=== PATIENT | male | born 1970 | race Caucasian/White ===

== ENCOUNTER → 2018-07-31 09:21 | Outpatient (CLI) | payer OTHER, SELFPAY ==
--- NOTE | 2018-07-31 09:27 | US_ITS ---
US abdomen limited History:Bloating after meals Ordering Physician:Claire Urbina Patient Age: 48 years Comparison:None Findings: Pancreas:Unremarkable. No obvious mass or abnormal fluid collection. No ductal dilatation Liver:There is increased echogenicity of the liver with decreased through transmission of sound consistent with hepatic steatosis. No focal liver lesions are demonstrated. Right Kidney:Unremarkable. Normal size and echogenicity. No hydronephrosis Gallbladder:No gallstones, gallbladder wall thickening, pericholecystic fluid, or biliary dilatation. Echogenic sludge is noted within the gallbladder. Impression: 1. No gallstones gallbladder wall thickening pericholecystic fluid or biliary dilatation. 2. Gallbladder sludge. 3. Hepatic steatosis
== END ==
PROVIDERS: Visit Provider Nurse Practitioner Acute Care
DX: R14.0 Abdominal distension (gaseous) (principal)
CPT/HCPCS: 76705

== ENCOUNTER 2018-09-22 17:10 | Observation (INO) ==
--- NOTE | 2018-09-22 17:20 | Emergency Department Note ---
ED Disposition Clinical Impression: Acute gastroenteritis Disposition: Still a Patient Condition on Discharge: Fair - Critical Care Critical Care Time: No Attestation: On , the high probability of a clinically significant, sudden or life threatening deterioration of the following system(s) required my full and direct attention, intervention and personal management. The time I documented below is in addition to time spent performing reported procedures but includes the following listed in this critical care notation. Medical Decision Making - [place] Inquiry Pt receiving controlled substance: No Vital Signs: 09/22/18 17:14 09/22/18 18:53 09/22/18 19:27 Temperature 97.7 F 97.7 F Temperature Source Oral Oral Pulse Rate 60 Pulse Rate [Left Radial] 63 68 Respiratory Rate 16 16 Blood Pressure 161/98 H Blood Pressure [Right Arm] 159/102 H 147/93 H Blood Pressure Mean [Right Arm] 121 111 Blood Pressure Source Automatic Cuff Blood Pressure Source [Right Arm] Automatic Cuff Automatic Cuff Blood Pressure Position Sitting Blood Pressure Position [Right Arm] Sitting Sitting 02 Sat by Pulse Oximetry 98 Oxygen Delivery Method Room Air Room Air - Lab Data Lab Results 09/22/18 17:14: WBC 10.8, RBC 4.74, Hgb 13.8 L, Hct 43.4, MCV 91.6, MCH 29.0, MCHC 31.7 L, RDW 14.1, Plt Count 129 L, MPV 10.5 H, Neut % (Auto) 83.9 H, Lymph % (Auto) 12.0, [place] % (Auto) 3.1, Eos % (Auto) 0.8, Baso % (Auto) 0.2, Neut # (Auto) 9.1 H, Lymph # (Auto) 1.3, [place] # (Auto) 0.3, Eos # (Auto) 0.1, Baso # (Auto) 0.0 09/22/18 17:14: Sodium 137, Potassium 3.5, Chloride 100, Carbon Dioxide 31, Anion Gap 9.5, BUN 17, Creatinine 1.21, Estimated Creat Clear 103, Estimated GFR 64, Est GFR ( Amer) 77, Glucose 140 H, Calcium 9.2, Total Bilirubin 0.4, AST 45 H, ALT 71, Alkaline Phosphatase 120 H, Total Protein 8.3 H, Albumin 4.4, Globulin 3.9 H, Albumin/Globulin Ratio 1.1 Result diagrams: 09/22/18 17:14 09/22/18 17:14 Orders (Tests/Meds): ED MEDICATIONS Generic Name Dose Route Start Last Admin Trade Name Frebobby PRN Reason Stop Dose Admin Acetaminophen 650 mg 09/22/18 19:41 Acetaminophen 325mg Tab PO 10/22/18 19:40 Q4HP PRN As Needed for Fever or Pain Fluoxetine HCl 10 mg 09/23/18 09:00 Prozac 10mg Capsule PO 10/23/18 08:59 DAILY ALFREDO Sodium Chloride 1,000 mls @ 150 mls/hr 09/22/18 19:41 Sod Chlor 0.9% 1000ml Bag IV 10/22/18 19:40 .Q6H40M ALFREDO Sodium Chloride 1,000 mls @ 999 mls/hr 09/22/18 19:41 09/22/18 19:53 Sod Chlor 0.9% 1000ml Bag IV 09/22/18 20:30 999 mls/hr .Q1H1M ALFREDO Administration Non-Formulary Medication 50 mg 09/23/18 09:00 Losartan Potassium [Losartan Potassium] PO 10/23/18 08:59 DAILY ALFREDO Non-Formulary Medication 60 mg 09/23/18 09:00 Propranolol Hcl [Propranolol Hcl Er] PO 10/23/18 08:59 DAILY ALFREOD Non-Formulary Medication 40 mg 09/23/18 09:00 Rosuvastatin Calcium [Rosuvastatin Calcium] PO 10/23/18 08:59 DAILY ALFREDO Ondansetron HCl 4 mg 09/22/18 19:41 Zofran 4mg/2ml Vial IV 10/22/18 19:40 Q8HP PRN Nausea Sodium Chloride 10 ml 09/22/18 19:41 Saline Flush 10ml Syringe IV 10/22/18 19:40 NEEDED PRN Maintain IV Site Discontinued Medications Generic Name Dose Route Start Last Admin Trade Name Freq PRN Reason Stop Dose Admin Sodium Chloride 1,000 mls @ 999 mls/hr 09/22/18 17:30 09/22/18 17:25 Sod Chlor 0.9% 1000ml Bag IV 09/22/18 18:30 999 mls/hr .Q1H1M ALFREDO Administration Sodium Chloride 1,000 mls @ 999 mls/hr 09/22/18 19:30 09/22/18 19:00 Sod Chlor 0.9% 1000ml Bag IV 09/22/18 20:30 999 mls/hr .Q1H1M ALFREDO Administration Ondansetron HCl 4 mg 09/22/18 17:22 09/22/18 17:24 Zofran 4mg/2ml Vial IV 09/22/18 17:23 4 mg ONCE ONE Administration ORDERS Category Date Time Status Basic Metabolic Panel AMLAB Lab 09/23/18 06:00 Ordered Diarrhea Panel, PCR Stat Lab 09/22/18 17:22 Ordered - Physician Consults Physician Consulted: Morenita Time: 18:55 Reason -: Admission Comment/Response: Agrees to admit the patient to the hospital. We discussed the patient's clinical information, including history, exam, laboratory and radiology results and ED course. Per hospital procedure, I will write temporary bridge inpatient orders on the patient. Specific orders requested by the admitting physician: IV fluids, antiemetics, diarrhea panel - Reevaluation(s) Time: 18:50 Reevaluation #1: No further vomiting since my exam, no diarrhea in the ED as of yet, but still feels weak and appears pale. General Adult HPI - General Chief complaint: Nausea/Vomiting/Diarrhea Stated complaint: N/V/D Time Seen by Provider: 09/22/18 17:20 Mode of Arrival: Wheelchair Limitations: No Limitations Description of Symptoms (Recalled from ER Triage Doc. by RN): to ed per pvt car with c/o nausea, vomiting, diarrhea, abd cramping starting approx 130 today. pt pale, petechiae noted around eyes. denies any sick contacts at home cpta none - History of Present Illness HPI narrative: He has been sick since Tuesday 2 days ago. He has had fevers and had diarrhea on Tuesday. Yesterday seemed to improve some. Today at about 130 began having profuse amounts of vomiting and diarrhea. Has abdominal cramping when he has diarrhea, otherwise no abdominal pain. No known exposures. No recent travel or antibiotics. - Related Data Home Medications Medication Instructions Recorded Confirmed Fluoxetine HCl [Prozac 10mg 10 mg PO DAILY 09/22/18 09/22/18 Capsule] Losartan Potassium 50 mg PO DAILY 09/22/18 09/22/18 Propranolol HCl [Propranolol HCl 60 mg PO DAILY 09/22/18 09/22/18 ER] Rosuvastatin Calcium 40 mg PO DAILY 09/22/18 09/22/18 hydroCHLOROthiazide [HCTZ 25mg 25 mg PO DAILY 09/22/18 09/22/18 tab] Allergies Allergy/AdvReac Type Severity Reaction Status Date / Time No Known Allergies Allergy Verified 09/22/18 17:21 [facility] History - Hepatitis A Screen Drug use history?: No High risk sexual behaviors?: No History of sexually transmitted infection?: No Currently employed?: No Childcare worker?: No Do you have indoor plumbing?: Yes Do you have electricity?: Yes Attestation statement:: This patient has been screened for Hepatitis A risk factors. I have reviewed the patient's past medical history: Yes - Social History Alcohol Intake: current Alcohol Intake Frequency:: holidays/special occasions only - Psychiatric History Expresses thoughts of harming self/others: None Suicide Plan Description: No Plan ROS Obtained: Yes All systems reviewed & no additional complaints - Constitutional Constitutional: Reports body ache, Reports fever(s) - Gastrointestinal Gastrointestingal: Reports: cramping, diarrhea, vomiting Physical Exam - General General appearance: alert Comment: Pale, vomits during my exam - Head Head exam: atraumatic, normocephalic - Eye Eye exam: Present: PERRL, EOMI - ENT ENT exam: Present: other (Periorbital facial petechiae from vomiting) - Neck Neck exam: Present: normal inspection, trachea midline - Chest Chest inspection: Present: normal inspection, symmetric chest wall rise - Respiratory Respiratory exam: Present: normal lung sounds bilaterally. Absent: respiratory distress - Cardiovascular Cardiovascular exam: Present: regular rate, normal rhythm, normal heart sounds - Abdominal Exam Abdominal exam: Present: soft. Absent: distention, tenderness, guarding, rebound, rigidity - Extremities Exam Extremities exam: Present: normal inspection - Neurological Exam Neurological exam: Present: alert, oriented X3 - Psychiatric Psychiatric exam: Present: normal affect, normal mood - Skin Skin exam: Present: warm, dry, pallor
[2018-09-22 17:31] LABS: Basophils % 0.2 % (0.1-2.0); Eosinophils # 0.1 K/mm3 (0.0-0.4); Eosinophils % 0.8 % (0.1-12.0); Hematocrit 43.4 % (42.0-52.0); Hemoglobin 13.8 g/dL (14.1-18.0); Lymphocytes # 1.3 K/mm3 (0.7-4.5); Mean Corpuscular HGB Conc 31.7 g/dL (31.8-35.4); Mean Corpuscular Volume 91.6 fl (80-94); Mean Platelet Volume 10.5 fl (7.4-10.4); Monocytes # 0.3 K/mm3 (0.1-1.0); Monocytes % 3.1 % (1.7-9.3); Neutrophils # 9.1 K/mm3 (1.8-7.8); Neutrophils % 83.9 % (37.0-80.0); Platelet Count 129 K/mm3 (142-424); Red Blood Count 4.74 M/mm3 (4.60-6.20); Red Cell Distribution Width 14.1 % (11.5-17.5); White Blood Count 10.8 K/mm3 (4.8-10.8)
[2018-09-22 17:38] LABS: Albumin Level 4.4 gm/dL (3.4-5.0); Albumin/Globulin Ratio 1.1 (1.1-1.8); Anion Gap 9.5 mEq/L (5-15); Bilirubin,Total 0.4 mg/dL (0.2-1.0); Calcium 9.2 mg/dL (8.5-10.1); Globulin 3.9 gm/dl (1.3-3.2); Potassium 3.5 mmoL/L (3.5-5.1); Total Protein,Serum 8.3 gm/dL (6.4-8.2)
--- NOTE | 2018-09-22 21:13 | Progress Note ---
Internal Medicine - PN: Subj *Date: 09/22/18 *Time: 21:10 Interval history: Came to see patient admitted with gastroenteritis this evening. He has been sick off and on for the past 3 days but got much worse this afternoon. He feels better after receiving treatment in the ER. Exam Vital signs and Labs for Last 24 Hours: Temp Pulse Resp BP Pulse Ox 97.7 F 60 16 161/98 H 98 09/22/18 19:27 09/22/18 19:27 09/22/18 19:27 09/22/18 19:27 09/22/18 17:14 Laboratory Results - last 24 hr 09/22/18 17:14: WBC 10.8, RBC 4.74, Hgb 13.8 L, Hct 43.4, MCV 91.6, MCH 29.0, M CHC 31.7 L, RDW 14.1, Plt Count 129 L, MPV 10.5 H, Neut % (Auto) 83.9 H, Lymph % (Auto) 12.0, [place] % (Auto) 3.1, Eos % (Auto) 0.8, Baso % (Auto) 0.2, Neut # (Auto) 9.1 H, Lymph # (Auto) 1.3, [place] # (Auto) 0.3, Eos # (Auto) 0.1, Baso # (Auto) 0.0 09/22/18 17:14: Sodium 137, Potassium 3.5, Chloride 100, Carbon Dioxide 31, Anion Gap 9.5, BUN 17, Creatinine 1.21, Estimated Creat Clear 103, Estimated GFR 64, Est GFR ( Amer) 77, Glucose 140 H, Calcium 9.2, Total Bilirubin 0.4, AST 45 H, ALT 71, Alkaline Phosphatase 120 H, Total Protein 8.3 H, Albumin 4.4, Globulin 3.9 H, Albumin/Globulin Ratio 1.1 I & O for Last 24 hours: Intake & Output 09/20/18 09/21/18 09/22/18 09/23/18 11:59 11:59 11:59 11:59 Weight 215 lb - Constitutional no acute distress (sleeping, awakens to voice, conversant) Assessment and Plan (1) Acute gastroenteritis Current visit: Yes Status: Acute Category: Medical Code(s): K52.9 - Noninfective gastroenteritis and colitis, unspecified - Assessment and plan all Dx Assessment and Plan for all problems:: Continue bowel rest & IVF, will start Rocephin tonight.
[2018-09-23 07:17] LABS: Basophils % 0.2 % (0.1-2.0); Eosinophils # 0.1 K/mm3 (0.0-0.4); Eosinophils % 0.7 % (0.1-12.0); Hematocrit 39.5 % (42.0-52.0); Hemoglobin 12.7 g/dL (14.1-18.0); Lymphocytes # 1.8 K/mm3 (0.7-4.5); Lymphocytes % 22.6 % (10-50); Mean Corpuscular HGB Conc 32.1 g/dL (31.8-35.4); Mean Corpuscular Hemoglobin 28.9 pg (27.0-31.2); Mean Platelet Volume 10.3 fl (7.4-10.4); Monocytes # 0.5 K/mm3 (0.1-1.0); Monocytes % 6.5 % (1.7-9.3); Neutrophils # 5.5 K/mm3 (1.8-7.8); Platelet Count 124 K/mm3 (142-424); Red Blood Count 4.39 M/mm3 (4.60-6.20); Red Cell Distribution Width 14.1 % (11.5-17.5); White Blood Count 7.9 K/mm3 (4.8-10.8)
[2018-09-23 07:21] LABS: Anion Gap 11.4 mEq/L (5-15); Potassium 3.4 mmoL/L (3.5-5.1)
[2018-09-23 07:52] LABS: Calcium 8.1 mg/dL (8.5-10.1)
--- NOTE | 2018-09-23 08:35 | History & Physical Report ---
*Admission Date: 09/22/18 <Oralia Sierra 09/23/18 08:40> *Chief complaint: vomiting, nausea <Oralia Sierra 09/23/18 08:40> *History of present illness: Mr. Cadena is a 48yo male with a hx of hypertension, hyperlipidemia, and depression. He states he had nausea and vomiting Tuesday and of this week and thought he just had what his son had had the week prior. He felt better yesterday and came to work. He states he ate some chicken chili for lunch and at 1:30 PM started having vomiting and diarrhea. He became very dizzy and developed a headache. He was unable to drive home and therefore presented to the emergency room for further evaluation and treatment. He was given IV fluids and antiemetics and by 4 PM, he states the vomiting and diarrhea decreased. He has vomited 3 times since he has been hospital. He had a few sips of water and a tiny bit of chicken broth. He still has decreased UOP. He states his stomach is sore but he denies any abdominal pain. <Oralia Sierra 09/23/18 08:40> [facility] History Medical History: Reports:: Depression, Hyperlipidemia, Hypertension <Oralia Sierra 09/23/18 08:40> Laterality Cases: Bilateral: Tonsillectomy <Oralia Sierra 09/23/18 08:40> - *Social History Educational Level: Completed College <Oralia iSerra 09/23/18 08:40> Smoking Status: Never smoker <Oralia Sierra 09/23/18 08:40> Alcohol Intake: current <Oralia Sierra 09/23/18 08:40> Alcohol Intake Frequency:: holidays/special occasions only <Oralia Sierra 09/23/18 08:40> Occupational Status: employed <Oralia Sierra 09/23/18 08:40> - Psychiatric History Expresses thoughts of harming self/others: None <Oralia Sierra 09/23/18 08:40> Suicide Plan Description: No Plan <Oralia Sierra 09/23/18 08:40> *Family Hx:: Diabetes <Oralia Sierra 09/23/18 08:40> Review of Systems - Constitutional Reports body ache(s), Reports chills, Reports fever(s), Reports headache(s), Reports weakness <Anjel Sierraa 09/23/18 08:40> - Eyes Denies blurry vision, Denies double vision [facility] 09/[facility] 08:40> - ENT Reports nasal congestion, Denies sore throat [facility] 09/23/18 08:40> - *Cardiovascular Reports lightheadedness, Denies chest pain [facility] 09/[facility]/18 08:40> - *Respiratory Denies cough, Denies shortness of breath [facility] 09/23/18 08:40> - *Gastrointestinal Reports abdominal pain, Reports loose stools, Reports nausea, Reports vomiting [facility] 09/23/18 08:40> - *Genitourinary Denies difficulty urinating, Denies painful urination <[facility] 09/23/18 08:40> - *Musculoskeletal Reports body aches [facility] 09/[facility]/18 08:40> - *Neurologic Reports dizziness, Reports headache(s), Reports weakness [facility] 09/23/18 08:40> Meds Home Medications Medication Instructions Recorded Confirmed Type Fluoxetine HCl [Prozac 10mg 10 mg PO 09/22/18 09/23/18 History Capsule] Losartan Potassium 50 mg PO DAILY 09/22/18 09/23/18 History Propranolol HCl [Propranolol HCl 60 mg PO 09/22/18 09/23/18 History ER] Rosuvastatin Calcium 40 mg PO HS 09/22/18 09/23/18 History hydroCHLOROthiazide [HCTZ 25mg 25 mg PO DAILY 09/22/18 09/23/18 History tab] <Murray Xavier 09/23/18 08:48> Allergies Allergy/AdvReac Type Severity Reaction Status Date / Time No Known Allergies Allergy Verified 09/22/18 17:21 <Murray Xavier - 09/23/18 08:48> Exam Vital signs and Labs for Last 24 Hours: Temp Pulse Resp BP Pulse Ox 98.2 F 84 18 153/78 H 95 09/23/18 08:00 09/23/18 08:00 09/23/18 08:00 09/23/18 08:00 09/23/18 08:00 Laboratory Results - last 24 hr 09/22/18 17:14: WBC 10.8, RBC 4.74, Hgb 13.8 L, Hct 43.4, MCV 91.6, MCH 29.0, MCHC 31.7 L, RDW 14.1, Plt Count 129 L, MPV 10.5 H, Neut % (Auto) 83.9 H, Lymph % (Auto) 12.0, [place] % (Auto) 3.1, Eos % (Auto) 0.8, Baso % (Auto) 0.2, Neut # (Auto) 9.1 H, Lymph # (Auto) 1.3, [place] # (Auto) 0.3, Eos # (Auto) 0.1, Baso # (Auto) 0.0 09/22/18 17:14: Sodium 137, Potassium 3.5, Chloride 100, Carbon Dioxide 31, Anion Gap 9.5, BUN 17, Creatinine 1.21, Estimated Creat Clear 103, Estimated GFR 64, Est GFR ( Amer) 77, Glucose 140 H, Calcium 9.2, Total Bilirubin 0.4, AST 45 H, ALT 71, Alkaline Phosphatase 120 H, Total Protein 8.3 H, Albumin 4.4, Globulin 3.9 H, Albumin/Globulin Ratio 1.1 09/23/18 06:44: Sodium 139, Potassium 3.4 L, Chloride 105, Carbon Dioxide 26, Anion Gap 11.4, BUN 12 D, Creatinine 1.01, Estimated Creat Clear 124, Estimated GFR 79, Est GFR ( Amer) 95 D, Glucose 124 H, Calcium 8.1 L D 09/23/18 06:44: WBC 7.9 D, RBC 4.39 L, Hgb 12.7 L, Hct 39.5 L, MCV 90.0, MCH 28.9, MCHC 32.1, RDW 14.1, Plt Count 124 L, MPV 10.3, Neut % (Auto) 70.0, Lymph % (Auto) 22.6, [place] % (Auto) 6.5, Eos % (Auto) 0.7, Baso % (Auto) 0.2, Neut # (Auto) 5.5, Lymph # (Auto) 1.8, [place] # (Auto) 0.5, Eos # (Auto) 0.1, Baso # (Auto) 0.0 <Murray Xavier - 09/23/18 08:48> Temp Pulse Resp BP Pulse Ox 98.2 F 84 18 153/78 H 95 09/23/18 08:00 09/23/18 08:00 09/23/18 08:00 09/23/18 08:00 09/23/18 08:00 Laboratory Results - last 24 hr 09/22/18 17:14: WBC 10.8, RBC 4.74, Hgb 13.8 L, Hct 43.4, MCV 91.6, MCH 29.0, MCHC 31.7 L, RDW 14.1, Plt Count 129 L, MPV 10.5 H, Neut % (Auto) 83.9 H, Lymph % (Auto) 12.0, [place] % (Auto) 3.1, Eos % (Auto) 0.8, Baso % (Auto) 0.2, Neut # (Auto) 9.1 H, Lymph # (Auto) 1.3, [place] # (Auto) 0.3, Eos # (Auto) 0.1, Baso # (Auto) 0.0 09/22/18 17:14: Sodium 137, Potassium 3.5, Chloride 100, Carbon Dioxide 31, Anion Gap 9.5, BUN 17, Creatinine 1.21, Estimated Creat Clear 103, Estimated GFR 64, Est GFR ( Amer) 77, Glucose 140 H, Calcium 9.2, Total Bilirubin 0.4, AST 45 H, ALT 71, Alkaline Phosphatase 120 H, Total Protein 8.3 H, Albumin 4.4, Globulin 3.9 H, Albumin/Globulin Ratio 1.1 09/23/18 06:44: Sodium 139, Potassium 3.4 L, Chloride 105, Carbon Dioxide 26, Anion Gap 11.4, BUN 12 D, Creatinine 1.01, Estimated Creat Clear 124, Estimated GFR 79, Est GFR ( Amer) 95 D, Glucose 124 H, Calcium 8.1 L D 09/23/18 06:44: WBC 7.9 D, RBC 4.39 L, Hgb 12.7 L, Hct 39.5 L, MCV 90.0, MCH 28.9, MCHC 32.1, RDW 14.1, Plt Count 124 L, MPV 10.3, Neut % (Auto) 70.0, Lymph % (Auto) 22.6, [place] % (Auto) 6.5, Eos % (Auto) 0.7, Baso % (Auto) 0.2, Neut # (Auto) 5.5, Lymph # (Auto) 1.8, [place] # (Auto) 0.5, Eos # (Auto) 0.1, Baso # (Auto) 0.0 <Oralia Sierra 09/23/18 08:40> I & O for Last 24 hours: Intake & Output 09/20/18 09/21/18 09/22/18 09/23/18 11:59 11:59 11:59 11:59 Intake Total 2380 / 2380 Output Total 500 / 500 Balance 1880 / 1880 Weight 216 lb 3 oz <Murray Xavier - 09/23/18 08:48> Intake & Output 09/20/18 09/21/18 09/22/18 09/23/18 11:59 11:59 11:59 11:59 Intake Total 2380 / 2380 Output Total 500 / 500 Balance 1880 / 1880 Weight 216 lb 3 oz <Oralia Sierra 09/23/18 08:40> - Constitutional Comments: Does not appear to feel well <Oralai Sierra 09/23/18 08:40> - *Routine HEENT Exam Head: Present: normocephalic <Oralia Sierra 09/23/18 08:40> Eye: Present: EOMI, PERRL <Oralia Sierra 09/23/18 08:40> ENT: Present: mucous membranes dry <Oralia Sierra 09/23/18 08:40> - *Routine Neck Exam Present: supple. Absent: lymphadenopathy <Oralia Sierra 09/23/18 08:40> - *Routine Respiratory Exam Present: CTA bilaterally <Oralia Sierra 09/23/18 08:40> - *Routine Cardiovascular Exam Present: RRR <Oralia Sierra 09/23/18 08:40> - *Routine Abdominal Exam Present: soft, normoactive bowel sounds. Absent: tenderness <Oralia Sierra 09/23/18 08:40> - *Routine Extremities Exam Absent: cyanosis, clubbing, edema <Oralia Sierra 09/23/18 08:40> - *Routine Skin Exam Present: petechiae (periorbital), warm <Oralia Sierra 09/23/18 08:40> - *Routine Neurological Exam Present: alert, oriented X3 <Oralia Sierra 09/23/18 08:40> Assessment and Plan (1) Acute gastroenteritis Current visit: Yes Status: Acute Category: Medical Code(s): K52.9 - Noninfective gastroenteritis and colitis, unspecified (2) Hypertension Current visit: Yes Status: Chronic Category: Medical Code(s): I10 - Essential (primary) hypertension (3) Hyperlipidemia Current visit: Yes Status: Chronic Category: Medical Code(s): E78.5 - Hyperlipidemia, unspecified <Murray Xavier 09/23/18 08:48> (1) Acute gastroenteritis Current visit: Yes Status: Acute Category: Medical Code(s): K52.9 - Noninfective gastroenteritis and colitis, unspecified (2) Hypertension Current visit: Yes Status: Chronic Category: Medical Code(s): I10 - Essential (primary) hypertension (3) Hyperlipidemia Current visit: Yes Status: Chronic Category: Medical Code(s): E78.5 - Hyperlipidemia, unspecified <Oralia Sierra 09/23/18 08:32> - Assessment and plan all Dx Assessment and Plan for all problems:: Saw patient, agree with above note. <Murray Xavier - 09/23/18 08:48> Patient was started on some Rocephin due to an elevated WBC. White blood cell count is normal today. Renal function is normal. His potassium is slightly low. We will continue IV fluid rehydration with potassium. We will continue antiemetics. <Oralia Sierra 09/23/18 08:40>
--- NOTE | 2018-09-23 12:38 | Pharmacy Consult Notes ---
[facility] Pharmacy VTE Monitoring - Patient Demographics Admission date: 09/23/18 Report Date: 09/23/18 Time: 12:37 Allergies/Adverse Reactions: Patient Allergies No Known Allergies Allergy (Verified 09/22/18 17:21) Height: 1.78 m Weight: 98.061 kg Patient Problems: Current Active Problems Acute gastroenteritis (Acute) Hypertension (Chronic) Hyperlipidemia (Chronic) - VTE Risk Labs: VTE Related Lab Results Hgb 12.7 g/dL (14.1-18.0) L 09/23/18 06:44 Hct 39.5 % (42.0-52.0) L 09/23/18 06:44 Plt Count 124 K/mm3 (142-424) L 09/23/18 06:44 BUN 12 mg/dL (7-18) D 09/23/18 06:44 Creatinine 1.01 mg/dL (0.70-1.30) 09/23/18 06:44 Estimated Creat Clear 124 mL/min (50-200) 09/23/18 06:44 Was VTE Risk Assessment Performed: Yes VTE Score: 2 VTE Risk Level: Very Low Risk - Prophylaxis Location of Applied Device: Bilateral Lower Extremeties (REJI HOSE ORDERED)
--- NOTE | 2018-09-24 08:49 | Progress Note ---
Internal Medicine - PN: Subj *Date: 09/24/18 *Time: 08:48 Interval history: Patient feels a lot better today, tolerating liquids, ate some toast, wants to go home. Exam Vital signs and Labs for Last 24 Hours: Temp Pulse Resp BP Pulse Ox 98.0 F 61 18 146/88 H 97 09/24/18 08:00 09/24/18 08:00 09/24/18 08:00 09/24/18 08:00 09/24/18 08:00 I & O for Last 24 hours: Intake & Output 09/21/18 09/22/18 09/23/18 09/24/18 11:59 11:59 11:59 11:59 Intake Total 2380 / 2380 3927 / 3927 Output Total 500 / 500 700 / 700 Balance 1880 / 1880 3227 / 3227 Weight 216 lb 3 oz 216 lb 3 oz - Constitutional no acute distress - *Routine HEENT Exam Head: Present: normocephalic Eye: Present: EOMI ENT: Present: mucous membranes moist - *Routine Neck Exam Present: supple. Absent: lymphadenopathy - *Routine Respiratory Exam Present: CTA bilaterally - *Routine Cardiovascular Exam Present: RRR - *Routine Abdominal Exam Present: soft, normoactive bowel sounds. Absent: tenderness - *Routine Extremities Exam Absent: cyanosis, clubbing, edema - *Routine Skin Exam Present: warm. Absent: rash - *Routine Neurological Exam Present: alert, oriented X3 Assessment and Plan (1) Acute gastroenteritis Current visit: Yes Status: Acute Category: Medical Code(s): K52.9 - Noninfective gastroenteritis and colitis, unspecified (2) Hypertension Current visit: Yes Status: Chronic Category: Medical Code(s): I10 - Essential (primary) hypertension (3) Hyperlipidemia Current visit: Yes Status: Chronic Category: Medical Code(s): E78.5 - Hyperlipidemia, unspecified - Assessment and plan all Dx Assessment and Plan for all problems:: OK for discharge home today.
[2018-09-24 16:09] LABS: Hepatitis B Core Antibody IgM Negative (Negative); Hepatitis B Surface Antigen Negative (Negative)
[2018-09-24 18:52] LABS: Hepatitis C Antibody <0.1 s/co ratio (0.0-0.9)
--- NOTE | 2018-09-25 13:06 | Discharge Summary ---
General - General Admission date:: 09/22/18 Discharge date: 09/24/18 HPI HPI: Mr. Cadena is a 48yo male with a hx of hypertension, hyperlipidemia, and depression. He states he had nausea and vomiting Tuesday and of this week and thought he just had what his son had had the week prior. He felt better yesterday and came to work. He states he ate some chicken chili for lunch and at 1:30 PM started having vomiting and diarrhea. He became very dizzy and developed a headache. He was unable to drive home and therefore presented to the emergency room for further evaluation and treatment. He was given IV fluids and antiemetics and by 4 PM, he states the vomiting and diarrhea decreased. He has vomited 3 times since he has been hospital. He had a few sips of water and a tiny bit of chicken broth. He still has decreased UOP. He states his stomach is sore but he denies any abdominal pain. Hospital Course Hospital Course: The patient was started on some Rocephin due to an elevated WBC. His WBC did normalize. Renal function was normal. His potassium was slightly low. IV fluid rehydration with potassium as well as antiemetics were continued. The patient's symptoms did improve and he was able to tolerate a liquid diet and some toast. He was anxious to go home. He was stable to be discharged on Ceftin and Zofran. Of note his hepatitis panel was negative. Objective Vital signs: Temp Pulse Resp BP Pulse Ox 98.0 F 61 18 146/88 H 97 09/24/18 08:00 09/24/18 08:00 09/24/18 08:00 09/24/18 08:00 09/24/18 08:00 Narrative: Constitutional Comments: Does not appear to feel well - *Routine HEENT Exam Head: Present: normocephalic Eye: Present: EOMI, PERRL ENT: Present: mucous membranes dry - *Routine Neck Exam Present: supple. Absent: lymphadenopathy - *Routine Respiratory Exam Present: CTA bilaterally - *Routine Cardiovascular Exam Present: RRR - *Routine Abdominal Exam Present: soft, normoactive bowel sounds. Absent: tenderness - *Routine Extremities Exam Absent: cyanosis, clubbing, edema - *Routine Skin Exam Present: petechiae (periorbital), warm - *Routine Neurological Exam Present: alert, oriented X3 Results Labs on day of discharge: Labs from last 24 hours 09/23/18 06:44 Hepatitis A IgM Ab Negative Hep Bs Antigen Negative Hep B Core IgM Ab Negative Hepatitis C Antibody <0.1 DS: Diagnosis - Discharge Diagnosis (1) Acute gastroenteritis Status: Acute (2) Hypertension Status: Chronic (3) Hyperlipidemia Status: Chronic Discharge Plan - Patient Discharge Instructions ACTIVITY: Continue current activity DIET: continue same diet Patient Instructions: DI for Bacterial Gastroenteritis -- Adult, DI for Nausea -- Adult, DI for Vomiting -- Adult, Nausea and Vomiting-Adult - Follow up Plan Follow up with: Murray Xavier MD [Staff Physician] - (Follow up as needed) Disposition: Home, Self-Assisted Medications: Home Medications Medication Instructions Recorded Confirmed Type Fluoxetine HCl [Prozac 10mg 10 mg PO HS 09/22/18 09/23/18 History Capsule] Losartan Potassium 50 mg PO DAILY 09/22/18 09/23/18 History Propranolol HCl [Propranolol HCl 60 mg PO HS 09/22/18 09/23/18 History ER] Rosuvastatin Calcium 40 mg PO HS 09/22/18 09/23/18 History hydroCHLOROthiazide [HCTZ 25mg 25 mg PO DAILY 09/22/18 09/23/18 History tab] Ondansetron HCl [Zofran 4mg Tab] 4 mg PO Q8HP PRN #15 tab 09/24/18 Rx cefUROXime axetil [Ceftin 500mg 500 mg PO BID #10 tab 09/24/18 Rx Tab (GEQ)] Prescriptions/Medication Reconciliation: New Ondansetron HCl [Zofran 4mg Tab] 4 mg PO Q8HP PRN #15 tab PRN Reason: Nausea And Vomiting cefUROXime axetil [Ceftin 500mg Tab (GEQ)] 500 mg PO BID #10 tab Continue Propranolol HCl [Propranolol HCl ER] 60 mg PO HS Losartan Potassium 50 mg PO DAILY Fluoxetine HCl [Prozac 10mg Capsule] 10 mg PO HS hydroCHLOROthiazide [HCTZ 25mg tab] 25 mg PO DAILY Rosuvastatin Calcium 40 mg PO HS
== END 2018-09-24 09:17 | disposition home or self-care (01) ==
LOC: ER 17:10 → 2ND 17:10
PROVIDERS: ADMIT Family Medicine; ATTEND Family Medicine
CPT/HCPCS: 36415; 80048; 80053; 80074; 85025; 96365; 96367; 96375; 99284; G0378; J2405

== ENCOUNTER → 2020-02-27 08:43 | Outpatient (CLI) | payer OTHER, SELFPAY ==
[2020-02-27 08:48] LABS: Adenovirus,PCR Not Detected (NotDetected); Bordetella Pertussis Not Detected (NotDetected); Chlamydophila Pneumoniae, PCR Not Detected (NotDetected); Coronavirus 19, PCR Not Detected (NotDetected); Coronavirus 229E Not Detected (NotDetected); Coronavirus NL63 Not Detected (NotDetected); Coronavirus OC43 Not Detected (NotDetected); Coronovirus HKU1,PCR Not Detected (NotDetected); Human Metapneumovirus Not Detected (NotDetected); Influenza A, PCR Not Detected (NotDetected); Influenza AH1, 2009 Not Detected (NotDetected); Influenza AH1, PCR Not Detected (NotDetected); Influenza AH3,PCR Not Detected (NotDetected); Influenza B, PCR Not Detected (NotDetected); Mycoplasma Pneumoniae, PCR Not Detected (NotDected); Parainfluenza 1, PCR Not Detected (NotDetected); Parainfluenza 2, PCR Not Detected (NotDetected); Parainfluenza 3, PCR Not Detected (NotDetected); Parainfluenza 4, PCR Not Detected (NotDetected); Respiratory Syncytial Virus Not Detected (NotDetected); Rhinovirus/Enterovirus Not Detected (NotDetected)
[2020-02-27 09:55] LABS: Coronavirus 19 IgG Antibody Negative (Negative); Coronavirus 19 IgM Antibody Negative (Negative)
== END ==
PROVIDERS: Visit Provider Nurse Practitioner Family
DX: Z03.818 Encounter for observation for suspected exposure to other biological agents ruled out (principal)
CPT/HCPCS: 36415; 86328; 87581; 87633; 87798

== ENCOUNTER → 2020-03-17 08:04 | Outpatient (CLI) | payer OTHER, SELFPAY ==
[2020-03-17 08:42] LABS: Basophils # 0.1 K/mm3 (0-0.2); Basophils % 0.7 % (0.1-2.0); Eosinophils # 0.3 K/mm3 (0.0-0.4); Eosinophils % 4.4 % (0.1-12.0); Hematocrit 41.7 % (42.0-52.0); Hemoglobin 14.3 g/dL (14.1-18.0); Lymphocytes # 2.4 K/mm3 (0.7-4.5); Lymphocytes % 33.7 % (10-50); Mean Corpuscular HGB Conc 34.3 g/dL (31.8-35.4); Mean Corpuscular Hemoglobin 30.1 pg (27.0-31.2); Mean Corpuscular Volume 87.6 fl (80-94); Mean Platelet Volume 10.2 fl (7.4-10.4); Monocytes # 0.4 K/mm3 (0.1-1.0); Monocytes % 5.9 % (1.7-9.3); Neutrophils % 55.3 % (37.0-80.0); Platelet Count 160 K/mm3 (142-424); Red Blood Count 4.76 M/mm3 (4.60-6.20); Red Cell Distribution Width 14.3 % (11.5-17.5); White Blood Count 7.3 K/mm3 (4.8-10.8)
[2020-03-17 09:31] LABS: Erythrocyte Sedimentation Rate 19 mm/hr (0-15)
[2020-03-17 09:57] LABS: Chloride 102 mmol/L (98-107)
[2020-03-17 09:58] LABS: Sodium 137 mmol/L (136-145)
[2020-03-17 10:00] LABS: Amylase 39 U/L (30-110); Blood Urea Nitrogen 14 mg/dl (9-20); Estimated Glomerular Filt Rate 71 ml/min (>60); GFR (African American) 86 ML/MIN (>60)
[2020-03-17 10:01] LABS: Alanine Aminotransferase 40 U/L (12-78); Albumin Level 4.6 g/dl (3.5-5.0); Alkaline Phosphatase 94 U/L (38-126); Aspartate Amino Transferase 34 U/L (17-59); Bilirubin,Direct 0.1 mg/dl (0.0-0.4); Bilirubin,Indirect 0.5 mg/dL (0.0-0.9); Bilirubin,Total 0.6 mg/dl (0.2-1.3); Bilirubin,Unconjugated 0.5 mg/dL (0.0-1.1); Calcium 9.5 mg/dl (8.4-10.2); Carbon Dioxide 27 mmol/L (22.0-30.0); Glucose 116 mg/dl (74-100); HDL Cholesterol 34 mg/dl (40-60); Lipase 49 U/L (23-300); Total Protein,Serum 7.6 g/dl (6.3-8.2)
[2020-03-17 10:02] LABS: Chol/HDL Ratio 5.1 (1-3.5); Cholesterol 174 mg/dl (140-200)
[2020-03-17 10:12] LABS: Direct LDL Cholesterol 88.77 mg/dL (100-129); Triglycerides 404 mg/dl (30-150)
[2020-03-17 12:14] LABS: Hemoglobin A1C 5.8 % (4.0-6.0)
== END ==
PROVIDERS: Visit Provider Internal Medicine
DX: R10.9 Unspecified abdominal pain (principal); E78.5 Hyperlipidemia, unspecified; I10 Essential (primary) hypertension; Z79.899 Other long term (current) drug therapy; L29.9 Pruritus, unspecified; E78.1 Pure hyperglyceridemia; R73.09 Other abnormal glucose
CPT/HCPCS: 80048; 80061; 80076; 82150; 83036; 83690; 85025; 85651

== ENCOUNTER → 2020-05-08 07:49 | Outpatient (CLI) | payer OTHER, SELFPAY ==
[2020-05-08 08:23] LABS: Glucose,Fasting 119 mg/dl (74-100)
[2020-05-08 09:56] LABS: Glucose 1 Hour 160 mg/dL (74-100)
[2020-05-08 10:45] LABS: Glucose 2 Hour 145 mg/dL (74-100)
== END ==
PROVIDERS: Visit Provider Nurse Practitioner Family
DX: R73.09 Other abnormal glucose (principal)
CPT/HCPCS: 36415; 82951

== ENCOUNTER → 2020-06-02 11:06 | Outpatient (CLI) | payer OTHER, SELFPAY ==
--- NOTE | 2020-06-02 11:13 | XR_ITS ---
PROCEDURE: XR FOOT WT BEARING RT 3V CLINICAL INDICATION: foot pain COMPARISON: No exams were available for comparison FINDINGS: No fracture or dislocation. No lytic or blastic change. There is normal mineralization. The joint spaces are well-preserved. No significant degenerative/arthritic changes. No erosive changes evident. Other findings:None. IMPRESSION: No acute findings. Dictated by: Adi Fry MD 06/02/2020 11:39 Adi Fry MD in [place] 06/02/2020 11:39
== END ==
PROVIDERS: Visit Provider Podiatrist
DX: M79.671 Pain in right foot (principal)
CPT/HCPCS: 73630

== ENCOUNTER → 2020-09-04 11:01 | Outpatient (CLI) | payer OTHER, SELFPAY ==
[2020-09-04 11:05] LABS: Adenovirus,PCR Not Detected (NotDetected); Bordetella Pertussis Not Detected (NotDetected); Chlamydophila Pneumoniae, PCR Not Detected (NotDetected); Coronavirus 19, PCR Not Detected (NotDetected); Coronavirus 229E Not Detected (NotDetected); Coronavirus NL63 Not Detected (NotDetected); Coronavirus OC43 Not Detected (NotDetected); Coronovirus HKU1,PCR Not Detected (NotDetected); Human Metapneumovirus Not Detected (NotDetected); Influenza A, PCR Not Detected (NotDetected); Influenza AH1, 2009 Not Detected (NotDetected); Influenza AH1, PCR Not Detected (NotDetected); Influenza AH3,PCR Not Detected (NotDetected); Influenza B, PCR Not Detected (NotDetected); Mycoplasma Pneumoniae, PCR Not Detected (NotDetected); Parainfluenza 1, PCR Not Detected (NotDetected); Parainfluenza 2, PCR Not Detected (NotDetected); Parainfluenza 3, PCR Not Detected (NotDetected); Parainfluenza 4, PCR Not Detected (NotDetected); Respiratory Syncytial Virus Not Detected (NotDetected); Rhinovirus/Enterovirus Not Detected (NotDetected)
== END ==
PROVIDERS: Visit Provider Nurse Practitioner Family
DX: Z03.818 Encounter for observation for suspected exposure to other biological agents ruled out (principal)
CPT/HCPCS: 87581; 87633; 87798

== ENCOUNTER → 2020-09-10 14:13 | Outpatient (CLI) | payer OTHER, SELFPAY ==
[2020-09-10 14:14] LABS: Adenovirus,PCR Not Detected (NotDetected); Bordetella Pertussis Not Detected (NotDetected); Chlamydophila Pneumoniae, PCR Not Detected (NotDetected); Coronavirus 19, PCR Not Detected (NotDetected); Coronavirus 229E Not Detected (NotDetected); Coronavirus NL63 Not Detected (NotDetected); Coronavirus OC43 Not Detected (NotDetected); Coronovirus HKU1,PCR Not Detected (NotDetected); Human Metapneumovirus Not Detected (NotDetected); Influenza A, PCR Not Detected (NotDetected); Influenza AH1, 2009 Not Detected (NotDetected); Influenza AH1, PCR Not Detected (NotDetected); Influenza AH3,PCR Not Detected (NotDetected); Influenza B, PCR Not Detected (NotDetected); Mycoplasma Pneumoniae, PCR Not Detected (NotDetected); Parainfluenza 1, PCR Not Detected (NotDetected); Parainfluenza 2, PCR Not Detected (NotDetected); Parainfluenza 3, PCR Not Detected (NotDetected); Parainfluenza 4, PCR Not Detected (NotDetected); Respiratory Syncytial Virus Not Detected (NotDetected); Rhinovirus/Enterovirus Not Detected (NotDetected)
== END ==
PROVIDERS: Visit Provider Physician Assistant
DX: Z03.818 Encounter for observation for suspected exposure to other biological agents ruled out (principal)
CPT/HCPCS: 87581; 87633; 87798

== ENCOUNTER → 2020-12-31 16:31 | Outpatient (CLI) | payer OTHER, SELFPAY ==
[2020-12-31 18:52] LABS: Coronavirus 19 IgG Antibody Positive (Negative); Coronavirus 19 IgM Antibody Negative (Negative)
== END ==
PROVIDERS: Visit Provider Internal Medicine Gastroenterology
DX: Z01.812 Encounter for preprocedural laboratory examination (principal); Z20.822 Contact with and (suspected) exposure to COVID-19; Z12.11 Encounter for screening for malignant neoplasm of colon
CPT/HCPCS: 36415; 86328

== ENCOUNTER 2021-01-02 09:30 | Day surgery (SDC) | payer OTHER, SELFPAY ==
[2020-12-30 10:19] VITALS: BMI 31.7
[2021-01-02] VITALS (7 sets, daily range): BP systolic 128–147; BP diastolic 81–95; PULSE 69–78; RESP 18; TEMP 36.1; O2SAT 96–100
--- NOTE | 2021-01-02 11:05 | HMH.PROC ---
[facility] Procedure Note Procedure Note:: Colonoscopy Procedure Report: Colonoscopy with cold snare polypectomy Endoscopist: Adolph Babin II, MD Referring physician: Pro Tirado MD Date of Procedure: January 02, 2021 Equipment: Olympus 190 variable stiffness pediatric colonoscope Sedation: MAC sedation Indication: Mr. Cadena is a 50-year-old gentleman who is here for initial screening colonoscopy. The patient was having moderate bloating and abdominal discomfort. He had tried probiotics but was not improving. He reported rumbling/grumbling and bloating with lower abdominal discomfort. He reported fullness and tightness that had worsened in the morning on his drive to work. This also is worsened with eating flour or bread. He did have the sucrose C 13 breath test last year which was normal. He did try Reglan and Konsyl but the Konsyl resulted in more gassiness. He is on a generic fiber supplement and Motegrity. This has helped his symptoms. He still gets some intermittent bloating. He reports no abdominal pain, weight loss, change in his bowel habits or rectal bleeding. He reports no family history of colon cancer. Procedure: Prior to the procedure, a history and physical exam was performed, and patient's medications and allergies were reviewed. The risks, benefits and alternatives of the sedation and procedure were discussed with the patient. All questions were answered and informed consent was obtained. The patient was brought to the procedure room. Patient identification and proposed procedure were verified by the physician and the nurse. The patient was placed in a left lateral decubitus position and the scope was passed under direct vision. Throughout the procedure, the patient's blood pressure, pulse, and oxygen saturations were monitored continuously. The colonoscopy was accomplished without difficulty. The patient tolerated the procedure well. Findings: On digital rectal examination there was normal rectal tone. There were no external hemorrhoids. The prostate was 2+, smooth, soft, symmetric without nodules. The colonoscope was introduced through the anal canal to the rectum and advanced to the cecum. The ileocecal valve and appendiceal orifice were identified. The scope was advanced a short distance into the ileum which appeared grossly normal. The scope was then withdrawn into the colon. The cecum, ascending and transverse colon and mucosa were grossly normal. There was a diminutive 4 mm polyp in the descending colon removed via cold snare polypectomy. There were mildly scattered diverticuli throughout the descending and sigmoid colon (LEFT colon). The rectum itself was normal. Upon retroflexion within the rectum there were grade 1 internal hemorrhoids. The preparation was excellent throughout with [place] Preparation Score of 9. The cecal time was 12 minutes. Impression: 1. Diminutive descending colon polyp 2. Mild left-sided diverticulosis 3. Grade 1 internal hemorrhoids Plan: I will follow up the polyp pathology and recommend repeat colonoscopy again in 7-10 years based upon the polyp histology. I would encourage continuation of the Motegrity and bulking fiber supplementation on a long-term daily maintenance basis. We will discuss additional treatment options for his bloating which is colonic gas formation/fermentation. This should be responsive to low FODMAP diet.
--- NOTE | 2021-01-02 15:08 | HMH.ANESCL ---
[facility] Anesthesia Checklist - Patient Identification Patient Identification: Arm Band - Structural Data Admitted From: Home Planned Operative Procedure/s: Colonoscopy Consent for Planned Operative Procedure(s) Verified: Yes Verified Documents: Surgical Consent - NPO Status Verified Time NPO: 00:00 - Airway Assessment C-Spine Mobility Assessed: Yes TMJ Mobility Assessed: Yes Dentition: Good Dentition - Neurological Assessment Level of Consciousness: Awake, Alert - Anesthesia Plan Anesthesia Risk discussed: Yes Anesthesia Plan: Verified ASA Class: II Anesthesia Type: MAC [facility] History Medical History: Reports:: Depression, Hyperlipidemia, Hypertension Denies:: Cancer, Diabetes Mellitus Type 1, Diabetes Mellitus Type 2, Internal Pacemaker, MRSA, Seizures *Have you ever received a pneumonia vaccine?: No *Have you received a flu vaccine this season?: Yes Anesthesia experience/problems:: None Laterality Cases: Bilateral: Tonsillectomy Other Surgeries: Yes: No Previous Surgery. No: Pacemaker Amputation: No Fractures: No - *Social History Last grade of school completed: Advanced degree Smoking Status: Never smoker Alcohol Intake: current Alcohol Intake Frequency:: holidays/special occasions only Substance Use Type: denies use *Occupational Status:: employed Housing: house Household Members: spouse *Travel in the last 8 weeks: Inside the [place] - Psychiatric History Pschychiatric History:: Reports:: Depression Family Hx:: Diabetes
== END 2021-01-02 12:11 | disposition home or self-care (01) ==
LOC: OUTP 09:31
PROVIDERS: Visit Provider Internal Medicine Gastroenterology
PROC: 0DJD8ZZ Inspection of Lower Intestinal Tract, Via Natural or Artificial Opening Endoscopic (ICD-10-PCS; CPT 45378; principal; 2021-01-02 10:30)
DX: Z12.11 Encounter for screening for malignant neoplasm of colon (principal); K63.5 Polyp of colon; K57.30 Diverticulosis of large intestine without perforation or abscess without bleeding; K64.0 First degree hemorrhoids; I10 Essential (primary) hypertension; E78.5 Hyperlipidemia, unspecified; F32.9 Major depressive disorder, single episode, unspecified; Z83.3 Family history of diabetes mellitus; Z79.899 Other long term (current) drug therapy
CPT/HCPCS: 45385

== ENCOUNTER → 2021-01-06 15:33 | Outpatient (POV) | payer OTHER, SELFPAY | PROVIDERS: Visit Provider Dermatology | DX: Z00.00 Encounter for general adult medical examination without abnormal findings (principal) ==

== ENCOUNTER → 2021-01-23 11:23 | Outpatient (CLI) | payer OTHER, SELFPAY ==
[2021-01-23 11:39] LABS: Basophils % 0.6 % (0.1-2.0); Eosinophils # 0.1 K/mm3 (0.0-0.4); Eosinophils % 2.2 % (0.1-12.0); Hemoglobin 12.9 g/dL (14.1-18.0); Lymphocytes # 1.9 K/mm3 (0.7-4.5); Lymphocytes % 30.9 % (10-50); Mean Corpuscular HGB Conc 32.2 g/dL (31.8-35.4); Mean Corpuscular Hemoglobin 28.9 pg (27.0-31.2); Mean Corpuscular Volume 89.8 fl (80-94); Mean Platelet Volume 11.2 fl (7.4-10.4); Monocytes # 0.3 K/mm3 (0.1-1.0); Monocytes % 5.1 % (1.7-9.3); Neutrophils # 3.8 K/mm3 (1.8-7.8); Neutrophils % 61.2 % (37.0-80.0); Platelet Count 140 K/mm3 (142-424); Red Blood Count 4.45 M/mm3 (4.60-6.20); Red Cell Distribution Width 13.8 % (11.5-17.5); White Blood Count 6.3 K/mm3 (4.8-10.8)
[2021-01-23 11:59] LABS: Hemoglobin A1C 5.7 % (4.0-6.0)
[2021-01-23 12:15] LABS: Chloride 102 mmol/L (98-107); Potassium 4.5 mmoL/L (3.5-5.1); Sodium 140 mmol/L (136-145)
[2021-01-23 12:17] LABS: Alanine Aminotransferase 40 U/L (12-78); Aspartate Amino Transferase 36 U/L (17-59); Blood Urea Nitrogen 17 mg/dl (9-20); Estimated Glomerular Filt Rate 79 ml/min (>60); GFR (African American) 96 ML/MIN (>60)
[2021-01-23 12:18] LABS: Albumin Level 4.8 g/dl (3.5-5.0); Albumin/Globulin Ratio 1.8 (1.1-1.8); Alkaline Phosphatase 116 U/L (38-126); Anion Gap 13.5 mEq/L (5-15); Bilirubin,Total 0.6 mg/dl (0.2-1.3); Calcium 10.1 mg/dl (8.4-10.2); Carbon Dioxide 29 mmol/L (22.0-30.0); Cholesterol 160 mg/dl (140-200); Globulin 2.7 g/dL (1.3-3.2); Glucose 102 mg/dl (74-100); Total Protein,Serum 7.5 g/dl (6.3-8.2); Triglycerides 298 mg/dl (30-150); VLDL Cholesterol 60 mg/dL (0-40)
[2021-01-23 12:19] LABS: Chol/HDL Ratio 4.7 (1-3.5); HDL Cholesterol 34 mg/dl (40-60)
[2021-01-23 12:29] LABS: Direct LDL Cholesterol 87.24 mg/dL (100-129)
[2021-02-03 20:55] LABS: 1,25 Dihydroxy Vitamin D 66 pg/mL (.); 1,25-Dihydroxy, Vitamin D-2 <10 pg/mL (.)
[2021-02-03 20:56] LABS: 1,25-Dihydroxy, Vitamin D-3 64 pg/mL (.)
== END ==
PROVIDERS: Visit Provider Internal Medicine
DX: I10 Essential (primary) hypertension (principal); E78.5 Hyperlipidemia, unspecified; R73.9 Hyperglycemia, unspecified; D64.9 Anemia, unspecified; R79.89 Other specified abnormal findings of blood chemistry; Z79.899 Other long term (current) drug therapy
CPT/HCPCS: 36415; 80053; 80061; 82652; 83036; 85025

== ENCOUNTER → 2021-01-30 14:51 | Outpatient (CLI) | payer OTHER, SELFPAY | PROVIDERS: PCP Family Medicine; Visit Provider Nurse Practitioner Family | DX: Z71.3 Dietary counseling and surveillance (principal); R10.30 Lower abdominal pain, unspecified; R14.0 Abdominal distension (gaseous); R15.0 Incomplete defecation | CPT/HCPCS: 97802 ==

== ENCOUNTER → 2021-06-03 10:45 | Outpatient (CLI) | payer OTHER, SELFPAY ==
[2021-06-03 11:41] LABS: Basophils % 0.6 % (0.1-2.0); Eosinophils # 0.2 K/mm3 (0.0-0.4); Eosinophils % 2.9 % (0.1-12.0); Hematocrit 39.8 % (42.0-52.0); Hemoglobin 12.9 g/dL (14.1-18.0); Lymphocytes # 1.8 K/mm3 (0.7-4.5); Lymphocytes % 30.2 % (10-50); Mean Corpuscular HGB Conc 32.4 g/dL (31.8-35.4); Mean Corpuscular Hemoglobin 29.1 pg (27.0-31.2); Mean Corpuscular Volume 89.9 fl (80-94); Mean Platelet Volume 10.5 fl (7.4-10.4); Monocytes # 0.3 K/mm3 (0.1-1.0); Monocytes % 5.1 % (1.7-9.3); Neutrophils # 3.6 K/mm3 (1.8-7.8); Neutrophils % 61.2 % (37.0-80.0); Platelet Count 150 K/mm3 (142-424); Red Blood Count 4.42 M/mm3 (4.60-6.20); Red Cell Distribution Width 13.7 % (11.5-17.5); White Blood Count 5.9 K/mm3 (4.8-10.8)
[2021-06-03 13:08] LABS: 25-OH Vitamin D, Total 41.4 ng/mL (30-100)
[2021-06-08 00:02] LABS: Immunoglobulin E, Total 131 IU/mL (6-495)
== END ==
PROVIDERS: Visit Provider Nurse Practitioner
DX: J45.40 Moderate persistent asthma, uncomplicated (principal); E55.9 Vitamin D deficiency, unspecified
CPT/HCPCS: 36415; 82306; 82785; 85025

== ENCOUNTER → 2021-08-07 20:04 | Outpatient (CLI) | payer OTHER, SELFPAY ==
[2021-08-07 20:56] LABS: Hemoglobin A1C 5.8 % (4.0-6.0)
== END ==
PROVIDERS: Visit Provider Nurse Practitioner Family
DX: E11.9 Type 2 diabetes mellitus without complications (principal); Z79.84 Long term (current) use of oral hypoglycemic drugs
CPT/HCPCS: 83036

== ENCOUNTER → 2021-08-25 10:45 | Outpatient (CLI) | payer OTHER, SELFPAY | PROVIDERS: PCP Family Medicine; Visit Provider Internal Medicine Pulmonary Disease | DX: R06.00 Dyspnea, unspecified (principal) | CPT/HCPCS: 94060 ==

== ENCOUNTER 2022-01-29 13:08 | Day surgery (SDC) | payer OTHER, SELFPAY ==
[2022-01-29 13:17] VITALS: BP 132/96; PULSE 85; RESP 18; TEMP 36.6; O2SAT 99; BMI 31.0
[2022-01-29 13:25] VITALS: BP 132/96; PULSE 85; RESP 18; O2SAT 99
[2022-01-29 13:33] VITALS: BP 154/93; PULSE 78; RESP 18; O2SAT 94
--- NOTE | 2022-01-29 13:34 | HMH.PMCON ---
Assessment and Plan (1) Lumbar back pain with radiculopathy affecting left lower extremity Status: Chronic Category: Medical Code(s): M54.16 - Radiculopathy, lumbar region (2) Sacroiliitis Status: Chronic Category: Medical Code(s): M46.1 - Sacroiliitis, not elsewhere classified - Assessment and plan all Dx Assessment and Plan for all problems:: Patient is a pleasant 51-year-old male who comes to our clinic today for initial evaluation regarding left posterior hip pain as well as radicular symptoms into the left posterior thigh. Patient describes the pain as constant, dull, aching. He rates the pain 7/10. Patient states pain increases when standing from a sitting position. Pain increases when standing for any length of time. Patient describes suffering a fall a few weeks back onto his buttocks. Upon examination patient has extreme point tenderness over the left SI joint. I discussed in detail with the patient regarding left sacroiliitis. Also, discussed in detail with the patient regarding left SI joint injection for diagnostic and therapeutic purposes. Patient wishes to proceed. HPI - Data of Consult Patient: new to practice Consult date: 01/29/22 Requesting Physician: Manish Gutierrez CRNA Primary Care Provider: Referral Provider, MD - Consult Narrative Reason for consult: Left posterior hip pain with left radicular symptoms History of present illness: Mr. Cadena is a 51 year old male CC: Manish Gutierrez CRNA [facility] History Medical History: Reports:: Depression, Diabetes Mellitus Type 2, Hyperlipidemia, Hypertension Denies:: Cancer, Diabetes Mellitus Type 1, Internal Pacemaker, MRSA, Seizures *Have you ever received a pneumonia vaccine?: No *Have you received a flu vaccine this season?: Yes Laterality Cases: Bilateral: Tonsillectomy Other Surgeries: Yes: No Previous Surgery, Colonoscopy, Other. No: Pacemaker Amputation: No Fractures: No - *Social History Smoking Status: Never smoker Alcohol Intake: never Alcohol Intake Frequency:: holidays/special occasions only Substance Use Type: denies use *Occupational Status:: employed Housing: house Household Members: spouse *Travel in the last 8 weeks: None - Psychiatric History Pschychiatric History:: Reports:: Depression Family Hx:: No significant family history Meds Home Medications Medication Instructions Recorded Confirmed Type albuterol sulfate 90 mcg/actuation 1 inh INHALATION Q6H PRN 90 Days 07/20/21 01/29/22 Rx aerosol inhaler #8.5 g prucalopride 2 mg tablet 2 mg PO DAILY tab 07/20/21 01/29/22 History cetirizine 10 mg tablet 10 mg PO DAILY PRN #90 tab 10/15/21 01/29/22 Rx rosuvastatin 10 mg tablet 10 mg PO DAILY #90 tab 10/15/21 01/29/22 Rx cyclobenzaprine 10 mg tablet 10 mg PO TID PRN #60 tab 01/07/22 01/29/22 Rx metoprolol succinate 25 mg 25 mg PO DAILY #90 tab 01/11/22 01/29/22 Rx tablet,extended release 24 hr Azelastine HCl [Azelastine Nasal 2 spray NS BID 01/29/22 01/29/22 History [place] 30mL Bottle] Azithromycin See Rx Instructions PO .COMPLEX 01/29/22 01/29/22 History Blood-Glucose Sensor [Dexcom G6 See Rx Instructions [facility] [place] 01/29/22 01/29/22 History Sensor] .MEDSUPPLY Blood-Glucose Sensor [Dexcom G6 [facility] 01/29/22 01/29/22 History Sensor] .MEDSUPPLY Blood-Glucose Transmitter [Dexcom See Rx Instructions * .MEDSUPPLY 01/29/22 01/29/22 History G6 Transmitter] Fluoxetine HCl [Prozac] See Rx Instructions .ROUTE .COMPLEX 01/29/22 01/29/22 History Fluticasone Propionate 1 spray NS DAILY 01/29/22 01/29/22 History Fluticasone/Vilanterol [Breo 1 inh IH DAILY 01/29/22 01/29/22 History Ellipta] Ketorolac Tromethamine [Toradol 10 mg PO TID 01/29/22 01/29/22 History 10mg tablet] Losartan Potassium [Cozaar 50mg See Rx Instructions .ROUTE .COMPLEX 01/29/22 01/29/22 History Tablets] Montelukast Sodium [Singulair] 10 mg PO DAILY 01/29/22 01/29/22 History Semaglutide [Ozempic] 0.25 mg SQ W
--- NOTE | 2022-01-29 13:46 | HMH.PMPROC ---
- Procedure Date: 01/29/22 Time: 13:46 Anesthesiologist:: Manish Gutierrez CRNA Complications:: None Pre-procedure Diagnosis:: Left sacroiliitis Post-procedure Diagnosis:: Same Indications for Procedure:: Very pleasant 51-year-old male who comes our clinic today with initial evaluation and treatment for left posterior hip pain as well as left leg radicular symptoms into the posterior thigh. Patient has extreme point tenderness over the left SI joint. We discussed in detail left SI joint injection for therapeutic and diagnostic purposes. He wishes to proceed. Procedure Details:: Procedure: Left sacroiliac injection under fluoroscopy Informed consent was obtained and the risk and benefits of the procedure were explained to the patient.~ The patient was taken to the procedure room and noninvasive monitors were placed including noninvasive blood pressure cuff and pulse oximeter.~ The patient was placed prone on the procedure table.~ The~ left hip was cleansed using Betadine as a cleansing solution.~ C-arm fluorosocpy was used to view the left SI joint.~ The skin and subcutaneous tissues were anesthetized using Lidocaine 1.5% and a 25-gauge needle.~ After this, a 22-gauge spinal needle was inserted under fluoroscopic guidance into the inferior aspect of the left SI joint.~ Omnipaque dye was injected and a good spread was seen throughout the joint.~ After this, approximately 5 mL of bupivacaine 0.25% and Depo-Medrol 40 mg was incrementally injected into the sacroiliac joint.~ The patient tolerated the procedure well with no complications.~ The patient was observed in the Pain Clinic for a period of 30-45 minutes, then discharged home neurologically intact.~ Plan and Disposition:: Patient was discharged without incident.
== END 2022-01-29 13:20 | disposition home or self-care (01) ==
LOC: SC.PAIN 13:15 → SDC 13:25 → SC.PAINP 13:29 → SDC 13:35
PROVIDERS: Visit Provider Nurse Anesthetist, Certified Registered
DX: M46.1 Sacroiliitis, not elsewhere classified (principal); M54.16 Radiculopathy, lumbar region; F32.A Depression, unspecified; E11.9 Type 2 diabetes mellitus without complications; E78.5 Hyperlipidemia, unspecified; I10 Essential (primary) hypertension
CPT/HCPCS: 27096; G0260; J1040

== ENCOUNTER → 2022-03-29 08:28 | Outpatient (CLI) | payer OTHER, SELFPAY ==
[2022-03-29 08:44] LABS: Basophils # 0.1 K/mm3 (0-0.2); Basophils % 1.7 % (0.1-2.0); Eosinophils # 0.1 K/mm3 (0.0-0.4); Eosinophils % 1.4 % (0.1-12.0); Hematocrit 39.7 % (42.0-52.0); Hemoglobin 12.9 g/dL (14.1-18.0); Lymphocytes # 1.8 K/mm3 (0.7-4.5); Lymphocytes % 32.5 % (10-50); Mean Corpuscular HGB Conc 32.6 g/dL (31.8-35.4); Mean Corpuscular Hemoglobin 29.4 pg (27.0-31.2); Mean Corpuscular Volume 90.4 fl (80-94); Mean Platelet Volume 10.8 fl (7.4-10.4); Monocytes # 0.4 K/mm3 (0.1-1.0); Monocytes % 8.1 % (1.7-9.3); Neutrophils # 3.1 K/mm3 (1.8-7.8); Neutrophils % 56.3 % (37.0-80.0); Platelet Count 159 K/mm3 (142-424); Red Blood Count 4.39 M/mm3 (4.60-6.20); Red Cell Distribution Width 15.1 % (11.5-17.5); White Blood Count 5.5 K/mm3 (4.8-10.8)
[2022-03-29 09:07] LABS: Alanine Aminotransferase 53 U/L (12-78); Albumin Level 4.6 g/dl (3.5-5.0); Alkaline Phosphatase 115 U/L (38-126); Anion Gap 12.7 mEq/L (5-15); Aspartate Amino Transferase 41 U/L (17-59); Bilirubin,Total < 0.1 mg/dl (0.2-1.3); Bilirubin,Unconjugated 0.4 mg/dL (0.0-1.1); Blood Urea Nitrogen 17 mg/dl (9-20); Calcium 9.8 mg/dl (8.4-10.2); Carbon Dioxide 29 mmol/L (22.0-30.0); Chloride 105 mmol/L (98-107); Chol/HDL Ratio 5.9 (1-3.5); Cholesterol 182 mg/dl (140-200); Estimated Glomerular Filt Rate 64 ml/min (>60); GFR (African American) 77 ML/MIN (>60); Glucose 98 mg/dl (74-100); HDL Cholesterol 31 mg/dl (40-60); Potassium 4.7 mmoL/L (3.5-5.1); Sodium 142 mmol/L (136-145); Total Protein,Serum 7.3 g/dl (6.3-8.2); Triglycerides 331 mg/dl (30-150); VLDL Cholesterol 66 mg/dL (0-40)
[2022-03-29 09:18] LABS: Direct LDL Cholesterol 104.15 mg/dL (100-129)
[2022-03-29 09:24] LABS: Free T4 (Free Thyroxine) 0.87 ng/dl (0.78-2.19)
[2022-03-29 09:25] LABS: 25-OH Vitamin D, Total 41.1 ng/mL (30-100)
[2022-03-29 09:35] LABS: Bilirubin,Indirect 0.3 mg/dL (0.0-0.9)
[2022-03-29 09:37] LABS: Thyroid Stimulating Hormone 3.42 uIU/mL (0.465-4.68)
[2022-03-30 13:39] LABS: Hemoglobin A1C 5.5 % (4.0-6.0)
== END ==
PROVIDERS: PCP Family Medicine; Visit Provider Nurse Practitioner Family
DX: R73.03 Prediabetes (principal); E78.5 Hyperlipidemia, unspecified; Z68.31 Body mass index [BMI] 31.0-31.9, adult; E66.3 Overweight
CPT/HCPCS: 36415; 80048; 80061; 80076; 82306; 83036; 84439; 84443; 85025

== ENCOUNTER → 2022-09-07 14:11 | Outpatient (CLI) | payer OTHER, SELFPAY ==
--- NOTE | 2022-09-07 14:18 | CT_ITS ---
FINAL REPORT CLINICAL HISTORY: HTN, SCREENING COMPARISON: May 12, 2017 FINDINGS: CT CORONARY CALCIUM SCORE W/O TECHNIQUE: Thin-section axial images were obtained through the heart and coronary arteries per CT coronary calcium score protocol. This study was performed with techniques to keep radiation doses as low as reasonably achievable (ALARA). Individualized dose reduction techniques using automated exposure control or adjustment of mA and/or kV according to the patient's size were employed. FINDINGS: On the axial images, there is calcification within the left anterior descending and circumflex coronary arteries. This gives a coronary artery calcium score of 160 based on the Agatston scale. This coronary artery calcium score places the patient within the 81st percentile based on age and gender. The heart size is normal. There is no pleural or pericardial effusion. Limited evaluation of the lungs reveal a 4 mm nodule in the anterior right upper lobe which is stable and consistent with a benign nodule. IMPRESSION: Coronary artery calcium score of 160 based on the Agatston scale which places the patient within the 81st percentile based on age and gender, worse from previous which was the 65th percentile. Stable 4 mm right upper lobe nodule consistent with benign nodule. Reviewed, Interpreted and Dictated by Guero Kendall III, MD Transcribed by Sharlene Randolph Authenticated and [facility]
== END ==
PROVIDERS: PCP Emergency Medicine; Visit Provider Internal Medicine Cardiovascular Disease
DX: Z13.6 Encounter for screening for cardiovascular disorders (principal)
CPT/HCPCS: 75571

== ENCOUNTER → 2022-11-17 08:09 | Outpatient (CLI) | payer OTHER, SELFPAY ==
[2022-11-17 08:31] LABS: Basophils # 0.1 K/mm3 (0-0.2); Eosinophils # 0.2 K/mm3 (0.0-0.4); Eosinophils % 2.5 % (0.1-12.0); Hematocrit 39.2 % (42.0-52.0); Hemoglobin 12.5 g/dL (14.1-18.0); Lymphocytes # 1.9 K/mm3 (0.7-4.5); Lymphocytes % 29.3 % (10-50); Mean Corpuscular HGB Conc 31.9 g/dL (31.8-35.4); Mean Corpuscular Hemoglobin 27.8 pg (27.0-31.2); Mean Corpuscular Volume 87.3 fl (80-94); Monocytes # 0.4 K/mm3 (0.1-1.0); Monocytes % 6.8 % (1.7-9.3); Neutrophils # 3.9 K/mm3 (1.8-7.8); Neutrophils % 60.5 % (37.0-80.0); Platelet Count 143 K/mm3 (142-424); Red Blood Count 4.49 M/mm3 (4.60-6.20); Red Cell Distribution Width 15.6 % (11.5-17.5); White Blood Count 6.4 K/mm3 (4.8-10.8)
[2022-11-17 09:04] LABS: Alanine Aminotransferase 33 U/L (12-78); Albumin Level 4.7 g/dl (3.5-5.0); Albumin/Globulin Ratio 1.8 (1.1-1.8); Alkaline Phosphatase 124 U/L (38-126); Anion Gap 10.2 mEq/L (5-15); Aspartate Amino Transferase 30 U/L (17-59); Bilirubin,Total 0.3 mg/dl (0.2-1.3); Blood Urea Nitrogen 20 mg/dl (9-20); Calcium 9.2 mg/dl (8.4-10.2); Carbon Dioxide 25 mmol/L (22.0-30.0); Chloride 107 mmol/L (98-107); Chol/HDL Ratio 4.3 (1-3.5); Cholesterol 124 mg/dl (140-200); Estimated Glomerular Filt Rate 78 ml/min (>60); GFR (African American) 95 ML/MIN (>60); Globulin 2.6 g/dL (1.3-3.2); Glucose 99 mg/dl (74-100); HDL Cholesterol 29 mg/dl (40-60); Potassium 4.2 mmoL/L (3.5-5.1); Sodium 138 mmol/L (136-145); Total Protein,Serum 7.3 g/dl (6.3-8.2); Triglycerides 317 mg/dl (30-150); VLDL Cholesterol 63 mg/dL (0-40)
[2022-11-17 09:16] LABS: Direct LDL Cholesterol 59.91 mg/dL (100-129)
[2022-11-17 09:25] LABS: 25-OH Vitamin D, Total 39.5 ng/mL (30-100)
[2022-11-17 09:35] LABS: Prostate Specific Ag Screen 1.1 ng/ml (0.0-4.0); Thyroid Stimulating Hormone 3.34 uIU/mL (0.465-4.68)
[2022-11-17 10:50] LABS: Hemoglobin A1C 5.5 % (4.0-6.0)
[2022-11-25 15:04] LABS: Testosterone, Total, LC/MS 204 ng/dL (.)
== END ==
PROVIDERS: PCP Nurse Practitioner Family; Visit Provider Nurse Practitioner Family
DX: R73.03 Prediabetes (principal); R53.83 Other fatigue; I10 Essential (primary) hypertension; Z12.5 Encounter for screening for malignant neoplasm of prostate
CPT/HCPCS: 36415; 80053; 80061; 82306; 83036; 84403; 84443; 85025; G0103

== ENCOUNTER → 2023-01-19 13:52 | Outpatient (CLI) | payer OTHER, SELFPAY ==
--- NOTE | 2023-01-19 13:53 | CT_ITS ---
FINAL REPORT TECHNIQUE: Axial images were obtained through the chest without contrast. CLINICAL HISTORY: . ? bronchiolectasis HIGH RESOLUTION CHEST X3 (INSPIRATION , EXPIRATION, INSPIRATION PRONE) COMPARISON: 09/07/2022 FINDINGS: No mediastinal mass or adenopathy. The lungs are clear. The heart size is normal. There is no pericardial or pleural effusion. High-resolution images demonstrate no evidence of fibrosis. No cystic change. No ground-glass infiltrate. Limited images of the upper abdomen demonstrate mild fatty infiltration of the liver. IMPRESSION: No acute cardiopulmonary process. Mild fatty liver. Reviewed, Interpreted and Dictated by Jorje Cota MD Transcribed by Julisa Guzmán Authenticated and [facility]
== END ==
PROVIDERS: PCP Nurse Practitioner Family; Visit Provider Internal Medicine Pulmonary Disease
DX: J84.9 Interstitial pulmonary disease, unspecified (principal)
CPT/HCPCS: 71250

== ENCOUNTER → 2023-04-06 15:38 | Outpatient (CLI) | payer OTHER, SELFPAY ==
[2023-04-06 16:36] LABS: Basophils % 0.5 % (0.1-2.0); Eosinophils # 0.2 K/mm3 (0.0-0.4); Hematocrit 37.9 % (42.0-52.0); Lymphocytes # 2.1 K/mm3 (0.7-4.5); Lymphocytes % 32.1 % (10-50); Mean Corpuscular HGB Conc 31.6 g/dL (31.8-35.4); Mean Corpuscular Hemoglobin 27.3 pg (27.0-31.2); Mean Corpuscular Volume 86.3 fl (80-94); Mean Platelet Volume 10.5 fl (7.4-10.4); Monocytes # 0.6 K/mm3 (0.1-1.0); Monocytes % 8.5 % (1.7-9.3); Neutrophils # 3.7 K/mm3 (1.8-7.8); Neutrophils % 55.9 % (37.0-80.0); Platelet Count 143 K/mm3 (142-424); Red Blood Count 4.39 M/mm3 (4.60-6.20); Red Cell Distribution Width 15.1 % (11.5-17.5); White Blood Count 6.6 K/mm3 (4.8-10.8)
[2023-04-06 17:17] LABS: 25-OH Vitamin D, Total 38.8 ng/mL (30-100)
[2023-04-06 17:56] LABS: Hemoglobin A1C 5.6 % (4.0-6.0)
[2023-04-12 04:19] LABS: Testosterone, Total, LC/MS 238 ng/dL (.)
== END ==
PROVIDERS: PCP Nurse Practitioner Family; Visit Provider Nurse Practitioner Family
DX: I10 Essential (primary) hypertension (principal); E78.5 Hyperlipidemia, unspecified; R53.83 Other fatigue; R73.03 Prediabetes; E29.1 Testicular hypofunction; E66.9 Obesity, unspecified; Z68.32 Body mass index [BMI] 32.0-32.9, adult
CPT/HCPCS: 36415; 82306; 83036; 84403; 85025

== ENCOUNTER → 2023-05-02 12:17 | Outpatient (CLI) | payer OTHER, SELFPAY ==
--- NOTE | 2023-05-02 12:19 | XR_ITS ---
FINAL REPORT CLINICAL HISTORY: SOB, cough for 2 weeks FINDINGS: 2 views of the chest were obtained . The heart is normal in size. The mediastinum is within normal limits. There are mild right base opacities favored represent atelectasis or pneumonia. There is no pneumothorax. Osseous structures are unremarkable. IMPRESSION: Mild right base atelectasis or pneumonia. Reviewed, Interpreted and Dictated by Guero Kendall III, MD Transcribed by June Jauregui Authenticated and [facility]
== END ==
PROVIDERS: PCP Nurse Practitioner Family; Visit Provider Internal Medicine Pulmonary Disease
DX: R06.02 Shortness of breath (principal)
CPT/HCPCS: 71046

== ENCOUNTER 2023-11-03 06:45 | Outpatient (CLI) | payer OTHER, SELFPAY ==
--- NOTE | 2023-11-03 06:49 | CT_ITS ---
FINAL REPORT TECHNIQUE: Thin section axial CT images of the facial bones and sinuses were obtained without contrast. Coronal reformatted images were also obtained.This study was performed with techniques to keep radiation doses as low as reasonably achievable, (ALARA). Individualized dose reduction techniques using automated exposure control or adjustment of mA and/or kV according to the patient''''s size were employed. CLINICAL HISTORY: Phantom smells FINDINGS: There is mild mucosal thickening of the ethmoid air cells. No fluid levels are identified. The ostiomeatal units have an unremarkable appearance. There is mild leftward nasal septal deviation. No fracture or acute bony abnormality is identified. IMPRESSION: Mild mucosal thickening of the ethmoid air cells. Reviewed, Interpreted and Dictated by Guero Kendall III, MD Transcribed by Merle Ortiz Authenticated and [facility]
== END 2023-11-03 23:59 ==
LOC: RAD 06:45
PROVIDERS: PCP Nurse Practitioner Family; Visit Provider Nurse Practitioner
DX: R43.1 Parosmia (principal)
CPT/HCPCS: 70486

== ENCOUNTER 2024-04-18 07:53 | Outpatient (CLI) | payer OTHER, SELFPAY ==
[2024-04-18 09:01] LABS: Basophils % 0.5 % (0.1-2.0); Eosinophils # 0.2 K/mm3 (0.0-0.4); Eosinophils % 3.1 % (0.1-12.0); Hematocrit 41.3 % (42.0-52.0); Hemoglobin 13.5 g/dL (14.1-18.0); Lymphocytes # 1.9 K/mm3 (0.7-4.5); Lymphocytes % 31.1 % (10-50); Mean Corpuscular HGB Conc 32.7 g/dL (31.8-35.4); Mean Corpuscular Hemoglobin 28.9 pg (27.0-31.2); Mean Corpuscular Volume 88.3 fl (80-94); Mean Platelet Volume 10.8 fl (7.4-10.4); Monocytes # 0.4 K/mm3 (0.1-1.0); Monocytes % 6.3 % (1.7-9.3); Neutrophils # 3.6 K/mm3 (1.8-7.8); Platelet Count 164 K/mm3 (142-424); Red Blood Count 4.68 M/mm3 (4.60-6.20); White Blood Count 6.1 K/mm3 (4.8-10.8)
[2024-04-18 09:11] LABS: Alanine Aminotransferase 35 U/L (12-78); Albumin Level 4.3 g/dl (3.5-5.0); Albumin/Globulin Ratio 1.6 (1.1-1.8); Alkaline Phosphatase 116 U/L (38-126); Anion Gap 9.4 mEq/L (5-15); Aspartate Amino Transferase 30 U/L (17-59); Bilirubin,Total 0.4 mg/dl (0.2-1.3); Blood Urea Nitrogen 17 mg/dl (9-20); Calcium 9.5 mg/dl (8.4-10.2); Carbon Dioxide 27 mmol/L (22.0-30.0); Chloride 107 mmol/L (98-107); Chol/HDL Ratio 4.4 (1-3.5); Cholesterol 151 mg/dl (140-200); Estimated Glomerular Filt Rate 70 ml/min (>60); GFR (African American) 85 ML/MIN (>60); Globulin 2.7 g/dL (1.3-3.2); Glucose 109 mg/dl (74-100); HDL Cholesterol 34 mg/dl (40-60); Potassium 4.4 mmoL/L (3.5-5.1); Sodium 139 mmol/L (136-145); Triglycerides 339 mg/dl (30-150); VLDL Cholesterol 68 mg/dL (0-40)
[2024-04-18 09:21] LABS: Direct LDL Cholesterol 70.53 mg/dL (100-129)
[2024-04-18 09:28] LABS: 25-OH Vitamin D, Total 71.2 ng/mL (30-100)
[2024-04-18 09:44] LABS: Prostate Specific Ag Screen 0.9 ng/ml (0.0-4.0); Thyroid Stimulating Hormone 3.23 uIU/mL (0.465-4.68)
[2024-04-18 11:35] LABS: Hemoglobin A1C 5.7 % (4.0-6.0)
[2024-04-28 05:09] LABS: Testosterone, Total, LC/MS 205 ng/dL (.)
== END 2024-04-18 23:59 | disposition home or self-care (01) ==
LOC: LAB 07:53
PROVIDERS: PCP Nurse Practitioner Family; Visit Provider Nurse Practitioner Family
DX: R53.83 Other fatigue (principal); I10 Essential (primary) hypertension; E78.5 Hyperlipidemia, unspecified
CPT/HCPCS: 36415; 80050; 80053; 80061; 82306; 83036; 84403; 84443; 85025; G0103

== ENCOUNTER 2024-05-04 11:21 | Outpatient (CLI) | payer OTHER, SELFPAY ==
[2024-05-04 11:25] LABS: Influenza A, PCR Not Detected (NotDetected); Influenza B, PCR Not Detected (NotDetected)
[2024-05-04 11:55] LABS: Coronavirus 19, PCR Detected (NotDetected)
== END 2024-05-04 23:59 | disposition home or self-care (01) ==
LOC: LAB 11:22
PROVIDERS: PCP Nurse Practitioner Family; Visit Provider Nurse Practitioner Family
DX: B34.9 Viral infection, unspecified (principal)
CPT/HCPCS: 87636

== ENCOUNTER 2024-06-21 15:42 | Outpatient (CLI) | payer OTHER, SELFPAY ==
--- NOTE | 2024-06-21 15:46 | XR_ITS ---
FINAL REPORT CLINICAL HISTORY: L Rib Pain COMPARISON: Chest x-ray dated 05/02/2023 FINDINGS: LEFT RIBS WITH CHEST A single PA view of the chest and three views of the left ribs were obtained. The heart and mediastinum within normal limits. The lungs are clear. There is no pneumothorax. There is no acute displaced rib fracture. IMPRESSION: No acute cardiopulmonary process. No displaced rib fracture with no pneumothorax Reviewed, Interpreted and Dictated by Jorje Cota MD Transcribed by Jeimy Hurst Authenticated and . [facility]
== END 2024-06-21 23:59 | disposition home or self-care (01) ==
LOC: RAD 15:44
PROVIDERS: PCP Nurse Practitioner Family; Visit Provider Nurse Practitioner Family
DX: R07.81 Pleurodynia (principal)
CPT/HCPCS: 71101

== ENCOUNTER → 2024-07-06 06:16 | Outpatient (CLI) | payer OTHER, SELFPAY | LOC: SL 07-09 06:16 | PROVIDERS: PCP Nurse Practitioner Family; Visit Provider Nurse Practitioner Family | DX: G47.33 Obstructive sleep apnea (adult) (pediatric) (principal); G47.36 Sleep related hypoventilation in conditions classified elsewhere | CPT/HCPCS: 95806 ==

== ENCOUNTER 2024-08-01 16:00 | Outpatient (RCR) | payer OTHER, SELFPAY ==
--- NOTE | 2024-06-28 16:09 | HMH.PTOPEV ---
PT Outpatient Evaluation Rehab PT Outpatient Evaluation Start: 06/28/24 15:32 Freq: Status: Active Protocol: Document 06/28/24 15:39 SHEREE (Rec: 06/28/24 16:09 SHEREE [id number]) E-signed By Rios Crawford, PT Outpatient Therapy Subjective History Subjective History Patient is a 54 year old male presenting to outpatient PT with reports of L sided lower thorcic/ rib pain. Symptoms of insidious onset starting approx 3 months ago. Special tests indicate L upslip of the innominant. Patient reports hx of piriformis syndrome. New diagnosis of cancer in past 12 No months? Chief Complaint Pain,Stiff Symptom Type Ache Symptoms Relieved By Rest/Positioning,Prescription Meds Symptoms Aggravated By Physical Activity Prior Functional Limitations None Current Functional Limitations Reaching,Lifting,Housework, Walking,Bending/Stooping Symptom Description Constant but Variable Level of pain today (0-10) 2 Pain scale - at its best (0-10) 2 Pain scale - at its worst (0-10) 5 Lumbopelvic Eval Posture Thoracic Spine Posture Standing Position Neutral,Flattened Lumbar Spine Posture Standing Position Increased Lordosis Palapation tenderness left Lumbar/Sacral Palpation Findings Tenderness Lumbar/Sacral Palpation Overall Comment T 110/11; proximal QL 3/4 Range of Motion Lumbar Spine Active Flexion Range of 68 Motion (degrees) Lumbar Spine Active Extension Range of 12 Motion (degrees) Left Lumbar Spine Lateral Flexion Active 18 Range of Motion (degrees) Right Lumbar Spine Lateral Flexion 12 Active Range of Motion (degrees) Lumbar Spine ROM Limitations Soft Tissue Tightness Special Tests Hip Manish (ALIZA) Test Positive Left,Positive Right Hip Mira Test Positive Left,Positive Right Hip Piriformis Test Positive Left,Positive Right Sacroiliac Joint Compression Test Negative Right,Positive Left Sacroiliac Joint Distraction Test Negative Right,Positive Left Lumbar Long Badger Distraction Test/Manual Positive Traction Oswestry Index Section 1 Pain Intensity The pain comes and goes and is moderate Section 2 Personal Care (Washing,Dresing) my way of washing or dressing even though it causes some pain Section 3 Lifting Pain prevents me from lifting weights off the floor Section 4 Walking I cannot walk more than 1/2 mile without increasing pain Section 5 Sitting Pain prevents me from sitting for more than one hour Section 6 Standing I cannot stand more than 1 hour without increasing pain Section 7 Sleeping I get pain in bed, but it does not prevent me from sleeping well Section 8 Social Life Pain has restricted my social life and I do not go out often Section 9 Traveling I get extra pain while traveling which compels me to seek alternate fo Section 10 Changing Degreee of Pain My pain is neither getting better or worse Score and Risk Level Oswestry Sc 22 Oswestry Risk Level Moderate Disability Outpatient Therapy Assessment Impairments Problems/Impairmments Palpation Tenderness,Impaired Range of Motion,Impaired Lifting,Impaired Household Care,Impaired Recreational Activities,Impaired Work Activities,Impaired Desk/ Computer Activities,Subjective C/O Pain Prognosis Rehab Potential Good Clinical Impression Consistent with Diagnosis Yes Short Term Goals Number of Weeks 2 Decrease Subjective C/O Pain Yes: 11/26 at worst Patient to be 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 Number of Weeks 4-6 Decreased Palpation Tenderness Yes: 09/22 Increase Range of Motion Yes: LS WNL Improve Ability For Household Care Yes Improve Tolerance to Work Activities Yes Decrease Subjective C/O Pain Yes: 09/28 at worst Outpatient Therapy Plan of Care Treatment Plan May Include Therapeutic Exercise Including Home Yes Exercise Program Manual Therapy Techniques Yes Neuromuscular Re-education Yes Therapeutic Activities to Return to Yes Previous Functional/Work Level Gait Training Yes ADL/Self Care Education Yes Dry Needling Yes Thermal Modalities Yes Electrical Stimulation Yes Ultrasound/Phonophoresis Yes Iontophoresis Yes Massage Yes Frequency Times per week 2-3 Duration Number of Weeks 4-6 Addendums This patient is a candidate for social No or vocational rehab? Patient/Guardian verbally acknowledges Yes understanding of treatment program and consents to further treatment? Patient/Guardian verbally acknowledges Yes understanding of diagnosis, prognosis and goals for treatment? Eval Complexity PT Charges 47147 - Moderate Complexity Shoulder/Elbow Eval Shoulder Objective Measurements Elbow Objective Measurements PHYSICIAN CERTIFICATION: I certify the specified therapy services for Randell Cadena are required, authorized, and reviewed every 30 days.
== END 2024-08-01 23:59 | disposition home or self-care (01) ==
LOC: PT 16:00
PROVIDERS: Visit Provider Nurse Practitioner Family
DX: R07.81 Pleurodynia (principal)
CPT/HCPCS: 97014; 97035; 97110; 97163; 97530; G0283

== ENCOUNTER 2024-12-04 15:48 | Outpatient (CLI) | payer OTHER, SELFPAY ==
--- NOTE | 2024-12-04 15:51 | XR_ITS ---
FINAL REPORT CLINICAL HISTORY: SOB COMPARISON: 06/21/2024 FINDINGS: PA and lateral views of the chest were obtained. No acute pulmonary density is evident. There is no evidence of effusion or other pleural disease. The mediastinum has a normal appearance. The cardiac silhouette is unremarkable. IMPRESSION: Unremarkable chest exam. Reviewed, Interpreted and Dictated by Juliette Weinstein MD Transcribed by Julisa Guzmán Authenticated and . [facility]
== END 2024-12-04 23:59 | disposition home or self-care (01) ==
LOC: RAD 15:49
PROVIDERS: PCP Nurse Practitioner Family; Visit Provider Internal Medicine Pulmonary Disease
DX: R06.02 Shortness of breath (principal); J45.909 Unspecified asthma, uncomplicated
CPT/HCPCS: 71046

== ENCOUNTER 2025-03-28 08:30 | Outpatient (CLI) | payer OTHER, SELFPAY ==
--- OUTSIDE RECORDS SUMMARY | 2025-03-13 13:15 | XMS_ITS | Encounter Summary ---
Author Organization Healthcare Address [address] [place] [address] Care Team Providers Care Operations Research Director Name Role Phone Unavailable Primary Care Provider Unavailabl e Encounter Details Date Type Department Care Team (Late st Contact Info) Description 03/13/2025 1:15 PM EDT [facility] [address] [place] [address] Geraldine Joy, DDS [address] [place] [address] Bekah Haney WENDY (obstructive sleep apnea) [G47.33] (Primary Dx) Social History Tobacco Use Types Packs/Day Years Used Date Smoking Tobacco: Never Smokeless Tobacco: Never Sex and Gender Information Value Date Recorded Sex Assigned at Not on file Legal Sex Male 1:21 PM EST Gender Identity Not on file Sexual Orientation Not on file documented as of this encounter Last Filed Vital Signs Vital Sign Reading Time Taken Comments Blood Pressure 119/79 03/13/2025 12:59 PM EDT Pulse 78 03/13/2025 12:59 PM EDT Temperature 36.6 C (97.8 F) 03/13/2025 12:59 PM EDT Respiratory Rate - - Oxygen Saturation 96% 03/13/2025 12:59 PM EDT Inhaled Oxygen Concentration - - Weight 104 kg (228 lb 2.8 oz) 03/13/2025 12:59 P M EDT Height 175.3 cm (5' 9 ) 03/13/2025 12:59 PM EDT Body Mass Index 33.7 03/13/2025 12:59 PM EDT documented in this encounter Miscellaneous Notes * Progress Notes - Bekah Haney - 03/13/2025 1:15 PM EDT History of present illness: Randell Cadena reported no improvement in his symptoms since our last appointment. Reportedly, he tried to use the appliance in combination with CPAP every night but it was difficult. He was able to wear his appliance alone for for 7 hours and indicated using the AM zoo keeper every morning for 10 minutes as recommended. He indicated his snoring did not change (worse without CPAP and denied gasping for air. Reportedly, his sleep quality has remained unchanged, and his night urination is not changed (avg 1). his daytime sleepiness remained unchanged. EES=12. Randell Cadena denied changes in his bite and denied pain in jaw muscles and/or TMJ today, he did however have mild jaw the first few nights if using the appliance. Medical history: no changes reported Examination: Visit Vitals BP 119/79 Pulse 78 Temp 36.6 ??C (97.8 ??F) Ht 1.753 m (5' 9 ) Wt 104 kg (228 lb 2.8 oz) SpO2 96% BMI 33.70 kg/m?? No changes in occlusion noted since last appointment. No dental mobility was found NM occlusal contact with mony stock was noted between all teeth. No pain upon palpation. No noises were recorded. Max opening 50 mm. Vertical overbite 1 mm and horizontal overjet 1 mm. Procedure: Appliance had arms #30 mm of advancement. It was advanced 1 mm per side and set at size#29 arms. Itwas tried for 10 minutes and patient indicated it felt comfortable. Assessment: Mild obstructive sleep apnea managed by MAD pending results of second sleep study. Plan: Patient to continue wearing appliance nightly. Discussed considering 1.5mm advancement at follow up at follow up Patient to return for follow-up appointment on 04/11/25. Cosigned by Geraldine Joy DDS at 03/14/2025 11:48 PM EDT Associated attestation - Geraldine Joy DDS - 03/14/2025 11:48 PM EDT I saw and evaluated the patient, I discussed the case with the student liaison officer and agree with the notes as documented below. documented in this encounter Plan of Treatment Upcoming Encounters Date Type Department Care Team (Late st Contact Info) Description 04/11/2025 8:45 AM EDT Office Visit [facility] [address] [place] [address] Geraldine Joy DDS [address] [address] documented as of this encounter Visit Diagnoses Diagnosis WENDY (obstructive sleep apnea) [G47.33]- Primary Obstructive sleep apnea (adult) (pediatric) documented in this encounter Additional Health Concerns Assessment Noted Time A Body Mass Index follow-up plan has been documented for the patient 03/14/2025 11:48 PM EDT documented as of this encounter
--- OUTSIDE RECORDS SUMMARY | 2025-03-28 08:35 | XMS_ITS | Encounter Summary ---
Author Organization Healthcare Address [address] [place] [address] Care Team Providers Care Professor Of Theology Name Role Phone Unavailable Primary Care Provider Unavailabl e Encounter Details Date Type Department Care Team (Latest Contact Info) Description 03/13/2025 Travel Social History Tobacco Use Types Packs/Day Years Used Date Smoking Tobacco: Never Smokeless Tobacco: Never Sex and Gender Information Value Date Recorded Sex Assigned at Not on file Legal Sex Male 1:21 PM EST Gender Identity Not on file Sexual Orientation Not on file documented as of this encounter Plan of Treatment Upcoming Encounters Date Type Department Care Team (Late st Contact Info) Description 04/11/2025 8:45 AM EDT [facility] Visit [facility] [address] [place] [address] Geraldine Joy, DDS [address] [address] documented as of this encounter Visit Diagnoses Not on filedocumented in this encounter Additional Health Concerns Assessment Noted Time A Body Mass Index follow-up plan has been documented for the patient 03/14/2025 11:48 PM EDT documented as of this encounter
--- OUTSIDE RECORDS SUMMARY | 2025-03-28 08:35 | XMS_ITS | Data Portability ---
Author Organization [facility] JESSICA Acosta BOISE CLOSED Address [address] [place] [address] Assessment No assessment recorded. Plan of Treatment Reminders Order Date Submit Date Provider Last Modified By Organization Details Last Modified Time Details Appointments None record ed. Lab None record ed. Referral None record ed. Procedures None record ed. Surgeries None record ed. Imaging None record ed. Medication Orders None record ed. Patient TargetsNo targets recorded. Patient InstructionsNo instructions recorded. Reason for Referral None Reported. Results Created Date Observation Date Name Description Value Unit Range Abnormal Flag Note LastModifiedBy Organization Detail LastModifiedTime 04/14/20 22 04/09/2022 audio gram No observ ation record ed. BARCODE Not Available 2021 10:07:37 Result Notes None recorded. Procedures Surgical History Date Name Laterality Status Provider Name and Address Organization Details Recorded Time 2 Tympanogram completed REJI NI [address] [place], [address], [facility] 04/09/2022 12:55:56 2 Audiogram completed REJI NI [address] [place], [address], [facility] 04/09/2022 12:55:58 1 Tympanogram completed REJI CAAL [facility] [address] [place], [address], [facility] 09/07/2021 15:51:52 1 Audiogram completed REJI CAAL [facility]A [address] [place], [address], [facility] 09/07/2021 15:51:51 Imaging Results None recorded. Procedure Notes None recorded. Medical Equipment None Reported. Medications Name Sig Start Date Stop Date Status Note LastModified by Organization Details LastModified Time losartan 50 mg tablet TAKE 1 TABLET BY MOUTH EVERY DAY active Not Available Not Available No t Available cetirizine 10 mg tablet TAKE ONE TABLET BY MOUTH EVERY DAY NEEDED FOR FOR ALLERGY symptoms active Not Available Not Available No t Available azithromycin 250 mg tablet TAKE 2 TABLETS BY MOUTH ON DAY 1, THEN TAKE 1 TABLET DAILY ON DAYS 2-5 active Not Available Not Available No t Available ketotifen 0.025 % (0.035 %) eye drops instill 1 DROP in eyes TWICE DAILY NEEDED for USE in eyes only active Not Available Not Available No t Available fluoxetine 10 mg capsule TAKE 1 CAPSULE BY MOUTH EVERY DAY AT BEDTIME active Not Available Not Available No t Available montelukast 10 mg tablet TAKE ONE TABLET BY MOUTH EVERY DAY active Not Available Not Available No t Available hydrochlorot hiazide 25 mg tablet TAKE ONE TABLET BY MOUTH EVERY DAY active Not Available Not Available No t Available metoprolol succinate ER 25 mg tablet,exten ded release 24 hr TAKE ONE TABLET BY MOUTH EVERY DAY active Not Available Not Available No t Available epinephrine 0.3 mg/0.3 mL injection, auto-injecto r INJECT THE CONTENTS OF 1 AUTO-INJECT OR INTRAMUSCUL KADY ONCE NEEDED FOR ANAPHYLAXIS REACTION. Call 911 AFTER USE. active Not Available Not Available N ot Available albuterol sulfate HFA 90 mcg/actuatio n aerosol inhaler INHALE 1 PUFF BY MOUTH EVERY 6 HOURS NEEDED FOR SHORTNESS OF BREATH OR wheezing active Not Available Not Available Not Available fluticasone propionate 50 mcg/actuatio n nasal spray,suspen radha instill 1 SPRAY IN EACH NOSTRIL EVERY DAY active Not Available Not Available No t Available rosuvastatin 10 mg tablet TAKE ONE TABLET BY MOUTH EVERY DAY active Not Available Not Available No t Available Flovent HFA 110 mcg/actuatio n aerosol inhaler INHALE TWO PUFFS BY MOUTH TWICE DAILY --RINSE MOUTH AFTER USE-- --SHAKE WELL BEFORE USE-- active Not Available Not Available No t Available Linzess 290 mcg capsule TAKE ONE CAPSULE BY MOUTH EVERY DAY 30 MINUTES PRIOR TO BREAKFAST active Not Available Not Available No t Available Arnuity Ellipta 100 mcg/actuatio n powder for inhalation INHALE 1 PUFF BY MOUTH EVERY DAY --RINSE MOUTH AFTER USE-- active Not Available Not Available No t Available Ozempic 0.25 mg or 0.5 mg (2 mg/1.5 mL) subcutaneous pen injector inject 0.25 MG (0.2 ML) SUBCUTANEOU SLY ONCE A WEEK FOR 4 doses, THEN increase TO inject 0.5 MG (0.4 ML) SUBCUTANEOU SLY ONCE A WEEK active Not Available Not Available No t Available Motegrity 2 mg tablet TAKE ONE TABLET BY MOUTH DAILY IN THE LATE AFTERNOON/E KDAY EVENING active Not Available Not Available No t Available Vitals None Recorded Social History None recorded. Functional Status None recorded. Mental Status None recorded. Family History Nothing Reported. Medical History No medical history recorded. Past Encounters Encounter ID Performer Location Encounter Start Date Encounter Closed Date Diagnosis/Indication Diagnosis SNOMED-CT Code Diagnosis ICD10 Code Diagnosis Note [id number] REJI CAAL, CCC-A [place] [facility] CLOSED [address] [place] [address] 09/07/2021 15:25:49 09/07/2021 15:51:53 Sensorineural hearing loss of bilateral ears 970753020 H90.3 [id number] REJI NI [place] [facility] [address] [place] [address] 04/09/2022 11:12:42 04/09/2022 12:56:59 Sensorineural hearing loss of bilateral ears [id number] H90.3 Bilateral tinnitus 48462 98391 102 H93.13 R>L Dizziness [id number] R42 Health Concerns Section Related Observation LastModified by Organization Detai ls LastModified Time None Recorded Concern Status LastModified by Organization Details LastModified Time None Recorded Advance Directives Directive None Recorded Payers Insurance Date Sequence Insurance Name Policy Number Policy Pritchett Covered Member ID Pritchett Member ID Guarantor Name 04/06/2022 1 [employer] (PPO) [id number] Randell Penny [id number] Randell Cadena
--- OUTSIDE RECORDS SUMMARY | 2025-03-28 08:35 | XMS_ITS | Clinical Summary ---
Author Organization [facility] Address [address] [place] [address] Care Team Providers Care Consulting Solution Manager Name Role Phone Unavailable Primary Care Provider Unavailabl e Allergies No known active allergies Medications cetirizine (ZyrTEC) 10 MG tablet Take 1 tablet (10 mg) by mouth 1 (one) time each day. Active FLUoxetine (PROzac) 10 MG capsule Take 1 capsule (10 mg) by mouth nightly. 10/11/2024 Active fluticasone (Flonase) 50 MCG/ACT nasal spray SPRAY 1-2 SPRAYS into BOTH nostrils EVERY DAY 09/26/2024 Active Trelegy Ellipta 200-62.5-25 MCG/ACT aerosol powder Inhale 1 puff. 09/04/2024 Active irbesartan (Avapro) 150 MG tablet Take 1 tablet (150 mg) by mouth daily. 10/11/2024 Active metoprolol succinate XL (Toprol-XL) 50 MG 24 hr tablet Take 1 tablet (50 mg) by mouth daily. 10/11/2024 Active rosuvastatin (Crestor) 20 MG tablet Take 1 tablet (20 mg) by mouth daily. 10/11/2024 Active montelukast (Singulair) 10 MG tablet Take 1 tablet (10 mg) by mouth every evening. 10/11/2024 Active Encounters Date Type Department Care Team Description 03/13/2025 1:15 PM EDT Office Visit [facility] [address] [place] [address] Purdy Regonesi, LILY Barker Monica R WENDY (obstructive sleep apnea) [G47.33] (Primary Dx) 03/13/2025 Travel 02/21/2025 Orders Only [facility] [address] [place] [address] Juan Carlos Rothman DDS WENDY (obstructive sleep apnea) (Primary Dx) 01/24/2025 3:15 PM EDT Office Visit [facility] [address] [place] [address] Juan Carlos Rothman DDS Habib, Salma K WENDY (obstructive sleep apnea) [G47.33] (Primary Dx) 01/24/2025 Travel 01/02/2025 Orders Only [facility]facial Pain [facility]facial Pain [facility] [address] [place] [address] [place] [address] Jeramie Sequeira from Last 3 Months Social History Tobacco Use Types Packs/Day Years Used Date Smoking Tobacco: Never Smokeless Tobacco: Never Tobacco Cessation:Counseling Given: Not Answered Sex and Gender Information Value Date Recorded Sex Assigned at Not on file Legal Sex Male 1:21 PM EST Gender Identity Not on file Sexual Orientation Not on file Last Filed Vital Signs Vital Sign Reading [...] Mass Index 33.7 03/13/2025 12:59 PM EDT Plan of Treatment Upcoming Encounters Date Type Department Care Team (Late st Contact Info) Description 04/11/2025 8:45 AM EDT Office Visit [place] [facility] [address] [place] [address] Geraldine Joy, DDS [address] [place] [address] Health Maintenance Due Date Last Done Comments Dental Oral Exam 1970 Dental Prophylaxis 1970 Dental X-Ray: Bitewings 1970 Dental X-Ray: Full Mouth 1970 [facility]-Depression Screening 1970 [facility]-HIV Screening 1970 [facility]-Hepatitis C Screening 1970 [facility]-/Child/Adol SDOH Screenings 1970 [facility]- SDOH Screenings 1988 [facility]-Adult SDOH Screenings 1988 [facility]-Hepatitis B Vaccines (1 of 3 - 19+ 3-dose series) 1989 CT Colonography 2015 Colonoscopy 2015 FIT-DNA 2015 FIT 2015 FOBT 2015 Sigmoidoscopy 2015 [facility]-Colorectal Cancer Screening 2015 [facility]-Pneumococcal Vaccine: 50+ Years (1 of 1 - PCV) 2020 [facility]-Zoster Vaccines (1 of 2) 2020 [facility]-DTaP,Tdap,and Td Vaccines (2 - Td or Tdap) 10/31/2023 10/31/2013 [id number] Vaccine ( - season) 2024 07/21/2021, 10/20/2020, 09/22/2020 [facility]-Influenza Vaccine (#1) 2025 07/03/2015 [facility]-Obesity Intervention Completed 025, 01/24/2025, 12/06/2024, Additional history exists HPV Vaccines Aged Out No longer eligi ble based on patient's age to complete this topic [facility]-HIB Vaccines Aged Out No longer e ligible based on patient's age to complete this topic [facility]-Hepatitis A Vaccines Aged Out No longer eligible based on patient's age to complete this topic [facility]-IPV Vaccines Aged Out No longer e ligible based on patient's age to complete this topic [facility]-Rotavirus Vaccines Aged Out No lo nger eligible based on patient's age to complete this topic Procedures Procedure Name Priority Date/Time Associated Diagnosis Comments DENTAL LAB Routine 02/21/2025 1:51 PM EDT WENDY (obstructive sleep apnea) from Last 3 Months Results * DENTAL LAB (02/21/2025 1:51 PM EDT) Fernandez 390.00 $ Comment:$390.00 [place] #[place] [id number] Date 12-25-2024 Accepted? Yes Invoice Split? Yes Juan Carlos Rothman DDS DENTAL LAB ORDERABLES Madeline l Result from Last 3 Months Insurance [facility]
--- OUTSIDE RECORDS SUMMARY | 2025-03-28 08:35 | XMS_ITS | Clinical Summary ---
Author Organization [facility] Address [address] , [address] [place] [address] Phone Care Team Providers Care Financial Retirement Plan Specialist Name Role Phone Unavailable Primary Care Provider Unavailabl e Allergies No known active allergies Medications rosuvastatin (CRESTOR) 10 mg Oral TabletIndications:M ixed hyperlipidemia Take 1 Tab by mouth daily. 90 Tab 1 9 Active propranolol (INDERAL LA) 60 mg Oral Capsule,Sustained Action 24 hrIndications:Essen tial hypertension Take 1 Cap by mouth daily. 90 Cap 1 9 Active losartan (COZAAR) 50 mg Oral TabletIndications:E ssential hypertension Take 1 Tab by mouth daily. 90 Tab 1 9 Active hydroCHLOROthiazide (HYDRODIURIL) 25 mg Oral TabletIndications:E ssential hypertension Take 1 Tab by mouth 2 times daily. 90 Tab 1 9 Active FLUoxetine (PROZAC) 10 mg Oral Capsule 9 Active prucalopride (MOTEGRITY) 2 mg Oral Tablet Take 2 mg by mouth daily. Active cetirizine (ZYRTEC) 10 mg Oral Tablet Take 10 mg by mouth daily. Active metFORMIN (GLUCOPHAGE) 500 mg Oral Tablet Take by mouth 2 times daily. Active B cmplx 4/vit D3/C/folic/zinc (VITAL-D RX ORAL) Take by mouth. Active fluticasone furoate (ARNUITY ELLIPTA INHL) Inhale into the lungs. Active Active Problems Problem Noted Date Diagnosed Date Essential hypertension 04/10/2016 Testosterone deficiency 03/17/2010 Seasonal allergies 03/16/2010 Depression, major, recurrent, mild 03/16/2010 Immunizations Immunization Administration Dates Next Due Influenza Vaccine, Unspecified Formulation 07/03 Tdap 10/31/2013 Surgical History Surgery Date Site/Laterality Comments TONSILLECTOMY 1980 Medical History Medical History Date Comments Allergy Depression Family History Medical History Relation Name Comments Diabetes Father Cancer Maternal Aunt breast Other Maternal Grandfather thoraci c aneruysm Other Maternal Grandmother alzheim ers Cancer Paternal Grandfather leukemi a High Blood Pressure Paternal Grandmother High Cholesterol Paternal Grandmother Relation Name Status Comments Father Maternal Aunt Maternal Grandfather Maternal Grandmother Paternal Grandfather Paternal Grandmother Social History Tobacco Use Types Packs/Day Years Used Date Smoking Tobacco: Never Smokeless Tobacco: Never Tobacco Cessation:Counseling Given: Yes Alcohol Use Standard Drinks/Week Comments No 0 (1 standard drink = 0.6 oz pur e alcohol) Sexually Active Control Partners Comments Yes Female Sex and Gender Information Value Date Recorded Sex Assigned at Not on file Legal Sex Male 6:45 AM EDT Gender Identity Not on file Sexual Orientation Not on file Obstetrics History Last Filed Vital Signs Vital Sign Reading Time Taken Comments Blood Pressure 135/97 10/22/2020 1:26 PM EST Pulse 99 10/22/2020 1:26 PM EST Temperature 36.1 C (96.9 F) 10/22/2020 1:26 PM EST Respiratory Rate 16 10/22/2020 1:26 PM EST Oxygen Saturation 98% 02/23/2019 12:14 PM EDT Inhaled Oxygen Concentration - - Weight 100.7 kg (222 lb) 10/22/2020 1:26 PM EST Height 177.8 cm (5' 10 ) 10/22/2020 1:26 PM EST Body Mass Index 31.85 10/22/2020 1:26 PM EST Plan of Treatment Health Maintenance Due Date Last Done Comments Hepatitis B Vaccine (1 of 3 - 19+ 3-dose series) 1989 Cologuard 2015 Colon Cancer Screening 2015 Colonoscopy 2015 FIT 2015 Sigmoidoscopy 2015 Virtual Colonography 2015 Annual Wellness Exam 10/18/2016 10/18/2015, 10/31/19 14 Pneumococcal Vaccine 50+ (1 of 1 - PCV) 2020 Zoster (1 of 2) 2020 DTaP/TDaP/Td (2 - Td or Tdap) 10/31/2023 10/31/2013 COVID-19 Vaccine (1 - 2023- season) 2024 Influenza Vaccine (#1) 2025 8, 07/26/2017, 07/03/2015, Additional history exists Meningococcal B Vaccine Aged Out No parviz maynardger eligible based on patient's age to complete this topic Goals Goal Patient Goal Type Associated Problems Recent Progress Patient-Stated? Author Blood Pressure < 140/90 Blood Pressure 135/97(2020 1:26 PM EST) No Kym Reyez RMA Maintain a healthy diet, exercise regularly and maintain an ideal body weight General No Kym Reyez RMA Insurance
--- OUTSIDE RECORDS SUMMARY | 2025-03-28 08:35 | XMS_ITS | Encounter Summary ---
Author Organization [facility] Address [address] [place] [address] Care Team Providers Care Turbo Operator Name Role Phone Unavailable Primary Care Provider Unavailabl e Encounter Details Date Type Department Care Team (Late st Contact Info) Description 02/21/2025 Orders Only [facility] [address] [place] [address] Juan Carlos Rothman [facility] [address] [address] WENDY (obstructive sleep apnea) (Primary Dx) Social History Tobacco Use Types [...] Description 04/11/2025 8:45 AM EDT Office Visit [facility] [address] [place] [address] Geraldine Joy, [facility] [address] [address] documented as of this encounter Procedures Procedure Name Priority Date/Time Associated Diagnosis Comments DENTAL LAB Routine 02/21/2025 1:51 PM EDT WENDY (obstructive sleep apnea) documented in this encounter Results * DENTAL LAB (02/21/2025 1:51 PM EDT) Fernandez 390.00 $ Comment:$390.00 ANDRAE ChristensenIN [id number] Date 12-25-2024 Accepted? Yes Invoice Split? Yes Juan Carlos Rothman DDS DENTAL LAB ORDERABLES Madeline l Result documented in this encounter Visit Diagnoses Diagnosis WENDY (obstructive sleep apnea)- Primary Obstructive sleep apnea (adult) (pediatric) documented in this encounter Additional Health Concerns Assessment Noted Time A Body Mass Index follow-up plan has been documented for the patient 01/25/2025 11:57 AM EDT documented as of this encounter
--- OUTSIDE RECORDS SUMMARY | 2025-03-28 08:35 | XMS_ITS | Encounter Summary ---
Author Organization [facility] Address [address] [place] [address] Care Team Providers Care Oil Producer Name Role Phone Unavailable Primary Care Provider Unavailabl e Reason for Referral * Consultation (Routine) - Closed Specialty Diagnoses / Procedures Referred By Marti jarvis Referred To Contact Dentist / Pain Medicine Diagnoses Obstructive sleep apnea (adult) (pediatric) Carolina Abbott MD [address] [place] [address] Phone: tel: fax: Geraldine Joy, DDS [address] [place] [address] Phone: tel: fax: Referral ID Status Reason Start Date Expiration Date Visits Re quested Visits Authorized [id number] Closed 09/28/2024 03/30/2026 1 1 Encounter Details Date Type Department Care Team (Late st Contact Info) Description 09/28/2024 Community [facility] [address] [place] [address] Carolina Abbott MD [address] [place] [address] [phone] Obstructive sleep apnea (adult) (pediatric) (Primary Dx) Social History Tobacco Use Types Packs/Day Years Used Date Smoking Tobacco: Never Assessed Sex and Gender Information Value Date Recorded Sex Assigned at Not on file Legal Sex Male 1:21 PM EST Gender Identity Not on file Sexual Orientation Not on file documented as of this encounter Plan of Treatment Upcoming Encounters Date Type Department Care Team (Late st Contact Info) Description 04/11/2025 8:45 AM EDT Office Visit [facility] [address] [place] [address] Geraldine Joy, DDS [address] [facility] [address] [place] [address] Scheduled Referrals Name Type Priority Associated Diagnoses Order Schedule Ambulatory Referral to Orofacial Pain Outpatient Referral Routine Obstructive sleep apnea (adult) (pediatric) Expected: 09/28/2024 (Approximate), Expires: 03/28/2026 documented as of this encounter Visit Diagnoses Diagnosis Obstructive sleep apnea (adult) (pediatric)- Primary documented in this encounter
[2025-03-28 09:28] LABS: Hematocrit 50.9 % (42.0-52.0); Hemoglobin 16.3 g/dL (14.1-18.0); Immature Granulocytes % 0.9 %; Mean Corpuscular HGB Conc 32.0 g/dL (31.8-35.4); Mean Corpuscular Hemoglobin 28.3 pg (27.0-31.2); Mean Corpuscular Volume 88.4 fl (80-94); Nucleated Red Blood Cells % 0 %; Platelet Count 141 K/mm3 (142-424); Red Blood Count 5.76 M/mm3 (4.60-6.20); Red Cell Distribution Width-SD 49.5 fL; White Blood Count 9.0 K/mm3 (4.8-10.8)
[2025-03-28 09:52] LABS: Alanine Aminotransferase 31 U/L (12-78); Albumin Level 4.9 g/dl (3.5-5.0); Alkaline Phosphatase 126 U/L (38-126); Anion Gap 17.4 mEq/L (5-15); Aspartate Amino Transferase 28 U/L (17-59); Bilirubin,Direct 0.2 mg/dl (0.0-0.4); Bilirubin,Indirect 0.3 mg/dL (0.0-0.9); Bilirubin,Total 0.5 mg/dl (0.2-1.3); Bilirubin,Unconjugated 0.3 mg/dL (0.0-1.1); Blood Urea Nitrogen 14 mg/dl (9-20); Calcium 9.6 mg/dl (8.4-10.2); Carbon Dioxide 28 mmol/L (22.0-30.0); Chloride 97 mmol/L (98-107); Cholesterol 119 mg/dl (140-200); Creatinine,Serum 1.00 mg/dl (0.66-1.25); Estimated Glomerular Filt Rate 78 ml/min (>60); GFR (African American) 94 ML/MIN (>60); Glucose 107 mg/dl (74-100); HDL Cholesterol 27 mg/dl (40-60); Potassium 4.4 mmoL/L (3.5-5.1); Sodium 138 mmol/L (136-145); Total Protein,Serum 7.5 g/dl (6.3-8.2); Triglycerides 222 mg/dl (30-150)
[2025-03-28 10:11] LABS: Free T4 (Free Thyroxine) 0.85 ng/dl (0.78-2.19)
[2025-03-28 10:23] LABS: Thyroid Stimulating Hormone 3.50 uIU/mL (0.465-4.68)
== END 2025-03-28 23:59 | disposition home or self-care (01) ==
LOC: LAB 08:32
PROVIDERS: Internal Medicine; PCP Nurse Practitioner Family; Visit Provider Allergy & Immunology
DX: D64.9 Anemia, unspecified (principal); R53.83 Other fatigue; T50.2X5A Adverse effect of carbonic-anhydrase inhibitors, benzothiadiazides and other diuretics, initial encounter; Z79.899 Other long term (current) drug therapy; I10 Essential (primary) hypertension; E29.1 Testicular hypofunction
CPT/HCPCS: 36415; 80048; 80061; 80076; 82785; 84403; 84439; 84443; 85025; 86003

== ENCOUNTER 2025-07-11 14:47 | Outpatient (CLI) | payer OTHER, SELFPAY ==
--- OUTSIDE RECORDS SUMMARY | 2025-05-23 12:45 | XMS_ITS | Encounter Summary ---
Author Organization [facility] Address [address] [place] [address] Care Team Providers Care Cigarette Carton Sealer Name Role Phone Unavailable Primary Care Provider Unavailabl e Encounter Details Date Type Department Care Team (Late st Contact Info) Description 05/23/2025 12:45 PM EDT Office Visit [facility] [address] [place] [address] Geraldine Joy, DDS [address] [address] Christoph Wilkinson WENDY (obstructive sleep apnea) [G47.33] (Primary Dx); WENDY (obstructive sleep apnea) Social History Tobacco Use Types Packs/Day Years Used Date Smoking Tobacco: Never Smokeless Tobacco: Never Sex and Gender Information Value Date Recorded Sex Assigned at Not on file Legal Sex Male 1:21 PM EST Gender Identity Not on file Sexual Orientation Not on file documented as of this encounter Last Filed Vital Signs Vital Sign Reading Time Taken Comments Blood Pressure 131/80 05/23/2025 1:04 PM EDT Pulse 83 05/23/2025 1:04 PM EDT Temperature 36.2 C (97.1 F) 05/23/2025 1:04 PM EDT Respiratory Rate - - Oxygen Saturation 95% 05/23/2025 1:04 PM EDT Inhaled Oxygen Concentration - - Weight 101 kg (222 lb 3.6 oz) 05/23/2025 1:04 PM EDT Height 176.5 cm (5' 9.5 ) 05/23/2025 1:04 PM EDT Body Mass Index 32.35 05/23/2025 1:04 PM EDT documented in this encounter Miscellaneous Notes * Progress Notes - Christoph Wilkinson - 05/23/2025 1:00 PM EDT Patient returned to the [facility] at the [facility] for a follow-up appointment to evaluate his Panthera appliance for the management of mild obstructive sleep apnea. History of present illness: Randell Cadena reported some improvement in his symptoms since our last appointment. Reportedly, he uses the appliance every night for 6 hours (in conjunction with his CPAP) and indicated using the AM property insurance agent every morning for 20 minutes. Patient indicated his snoring mildly improved and denied gasping for air. Reportedly, his sleep quality improved significantly, and his night time urination is one event per week. He stated he plans to discontinue CPAP use and switch to solely using the Panthera appliance. ESS=13. Randell Cadena indicated changes in his bite (he stated his mandibular anterior teeth advanced labially and noted he bit his lip more than he normally did in the past). He also indicated pain in jaw muscles (he shared that he had stopped using the Panthera appliance over a month ago, and when he resumed use, he developed bilateral masseter pain after resuming use for approximately 1 week. After that episode, he reported no further pain despite multiple advancements). He has been advancing 0.5mm per week on average with his most recent advancement to size26 arms last night. The patient also reported daily headaches located bilaterally in his temples (intensity 1/10, onset 6 weeks ago, average duration 10 hours) and stated he is unsure if they were from his medication change (began taking Pristiq) or the appliance. He does not wake up with headaches. Randell Cadena reported an overall improvement of 65% in his sleep apnea symptoms since beginning therapy. General medical history: No changes reported since last appointment ROS: Negative. Examination: Visit Vitals BP 131/80 Pulse 83 Temp (!) 36.2 ??C (97.1 ??F) Ht 1.765 m (5' 9.5 ) Wt 101 kg (222 lb 3.6 oz) SpO2 95% BMI 32.35 kg/m?? No dental mobility was found. VA occlusal contact with mony stock was noted between all teeth except 03/16, 04/14, 08/09, 08/10. No pain upon palpation. Right TMJ clicking noises were noted upon opening (asymptomatic). Max opening 56 mm. Vertical overbite 1 mm and horizontal overjet 0 mm. Procedure: Appliance had 4 mm of advancement (initial size 30, current size 26 arms). It was advanced by the patient last night to size 26. The patient already had arms for size 25.5 and 25. The patient was given arms to size 23 for advancement at home. Assessment: mild obstructive sleep apnea managed by MAD. Plan: Patient to was discontinue CPAP use for a few nights to check the effect of oral appliance alone. Can resume use thereafter. Patient to continue wearing appliance nightly and to use AM property insurance agent upon awakening every morning. Patient to continue 0.5mm advancement every week. Patient to return for follow-up appointment in 3 weeks. Cosigned by Geraldine Joy DDS at 05/24/2025 9:01 AM EDT Associated attestation - Geraldine Joy DDS - 05/24/2025 9:01 AM EDT I saw and evaluated the patient, I discussed the case with the assistant dean of students and agree with the notes as documented below. documented in this encounter Plan of Treatment Not on file documented as of this encounter Visit Diagnoses Diagnosis WENDY (obstructive sleep apnea)- Primary Obstructive sleep apnea (adult) (pediatric) WENDY (obstructive sleep apnea) [G47.33] Obstructive sleep apnea (adult) (pediatric) documented in this encounter Additional Health Concerns Assessment Noted Time A Body Mass Index follow-up plan has been documented for the patient 05/24/2025 9:01 AM EDT documented as of this encounter
--- OUTSIDE RECORDS SUMMARY | 2025-07-04 14:30 | XMS_ITS | Encounter Summary ---
Author Organization [facility] Address [address] [place] [address] Care Team Providers Care Wire Splicer Name Role Phone Unavailable Primary Care Provider Unavailabl e Encounter Details Date Type Department Care Team (Late st Contact Info) Description 07/04/2025 2:30 PM EDT Office Visit [facility] [address] [place] [address] Juan Carlos Rothman, DDS [address] [address] Alessia Cuello Social History Tobacco Use Types Packs/Day Years Used Date Smoking Tobacco: Never Smokeless Tobacco: Never Sex and Gender Information Value Date Recorded Sex Assigned at Not on file Legal Sex Male 1:21 PM EST Gender Identity Not on file Sexual Orientation Not on file documented as of this encounter Last Filed Vital Signs Vital Sign Reading Time Taken Comments Blood Pressure 120/79 07/04/2025 2:28 PM EDT Pulse 85 07/04/2025 2:28 PM EDT Temperature 36.6 C (97.8 F) 07/04/2025 2:28 PM EDT Respiratory Rate - - Oxygen Saturation 95% 07/04/2025 2:28 PM EDT Inhaled Oxygen Concentration - - Weight 101 kg (223 lb 1.7 oz) 07/04/2025 2:28 PM EDT Height - - Body Mass Index 32.47 05/23/2025 1:04 PM EDT documented in this encounter Plan of Treatment Not on file documented as of this encounter Visit Diagnoses Not on filedocumented in this encounter Additional Health Concerns Assessment Noted Time A Body Mass Index follow-up plan has been documented for the patient 05/24/2025 9:01 AM EDT documented as of this encounter
[2025-07-11] MEDS: METHACHOLINE CHLORIDE 65MG/18ML KIT 64 MG IH (15:00)
--- OUTSIDE RECORDS SUMMARY | 2025-07-11 15:11 | XMS_ITS | Clinical Summary ---
Author Organization [facility] Address [address] , [address] [place] [address] Phone Care Team Providers Care Skein Spooler Name Role Phone Unavailable Primary Care Provider [...] Tdap) 10/31/2023 10/31/2013 COVID-19 Vaccine (1 - 2024- season) 2025 Influenza Vaccine (#1) 2025 8, 07/26/2017, 07/03/2015, Additional history exists Meningococcal B Vaccine Aged Out No l onger eligible based on patient's age to complete this topic Goals Goal Patient Goal Type Associated Problems Recent Progress Patient-Stated? Author Blood Pressure < 140/90 Blood Pressure 135/97(2020 1:26 PM EST) No Kym Reyez RMA Maintain a healthy diet, exercise regularly and maintain an ideal body weight General No Kym Reyez RMA Insurance
--- OUTSIDE RECORDS SUMMARY | 2025-07-11 15:11 | XMS_ITS | Clinical Summary ---
Author Organization [facility] Address [address] [place] [address] Care Team Providers Care Quality Rep Name Role Phone Unavailable Primary Care Provider Unavailabl e Allergies No known active allergies Medications cetirizine (ZyrTEC) 10 MG tablet Take 1 tablet (10 mg) by mouth 1 (one) time each day. Active fluticasone (Flonase) 50 MCG/ACT nasal spray SPRAY 1-2 SPRAYS into BOTH nostrils EVERY DAY 09/26/19 25 Active Trelegy Ellipta 200-62.5-25 MCG/ACT aerosol powder Inhale 1 puff. 09/04/20 24 Active irbesartan (Avapro) 150 MG tablet Take 1 tablet (150 mg) by mouth daily. 10/11/19 25 Active metoprolol succinate XL (Toprol-XL) 50 MG 24 hr tablet Take 1 tablet (50 mg) by mouth daily. 10/11/19 25 Active rosuvastatin (Crestor) 20 MG tablet Take 1 tablet (20 mg) by mouth daily. 10/11/19 25 Active montelukast (Singulair) 10 MG tablet Take 1 tablet (10 mg) by mouth every evening. 10/11/19 25 Active desvenlafaxine succinate er (Pristiq) 25 MG 24 hr tablet Take 1 tablet by mouth daily. 04/08/20 25 Active hydroCHLOROthi azide (HYDRODiuril) 25 MG tablet Take 1 tablet by mouth daily. 10/11/19 25 Active EPINEPHrine (Epipen) 0.3 MG/0.3ML auto-injector INJECT THE CONTENTS OF 1 AUTO-INJECTOR INTRAMUSCULARLY ONCE NEEDED FOR ANAPHYLAXIS REACTION. Call 911 AFTER USE. 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 05/23/2025 Sacroiliitis 05/23/2025 Essential hypertension 04/10/2016 Seasonal allergies 03/16/2010 Depression, major, recurrent, mild 03/16/2010 Encounters Date Type Department Care Team Description 07/04/2025 2:30 PM EDT Office Visit [facility] Room [address] [address] Juan Carlos Rothman DDS Habib, Salma K 07/04/2025 Travel 07/03/2025 Travel 05/23/2025 12:45 PM EDT Office Visit [facility] Room [address] [address] Geraldine Joy DDS Manocha, Nikhil WENDY (obstructive sleep apnea) [G47.33] (Primary Dx); WENDY (obstructive sleep apnea) 05/23/2025 Travel 04/11/2025 8:45 AM EDT Office Visit [facility] Room [address] [address] Geraldine Joy DDS WENDY (obstructive sleep apnea) [G47.33] (Primary Dx); WENDY (obstructive sleep apnea) 04/11/2025 Travel from Last 3 Months Family History Medical History Relation Name Comments Alcohol abuse Father Relation Name Status Comments Father Social History Tobacco Use Types Packs/Day Years [...] 1.7 oz) 07/04/2025 2:28 PM EDT Height 176.5 cm (5' 9.5 ) 05/23/2025 1:04 PM EDT Body Mass Index 32.47 05/23/2025 1:04 PM EDT Plan of Treatment Health Maintenance Due Date Last Done Comments Dental Oral Exam 1970 Dental Prophylaxis 1970 Dental X-Ray: Bitewings 1970 Dental X-Ray: Full Mouth 1970 [facility]-Depression Screening 1970 [facility]-HIV Screening 1970 [facility]-Hepatitis C Screening 1970 [facility]-Infant/Child/Adol SDOH Screenings 1970 [facility]- SDOH Screenings 1988 [...] (2 - Td or Tdap) 10/31/2023 10/31/2013 [id number] Vaccine ( - season) 2025 07/21/2021, 10/20/2020, 09/22/2020 [facility]-Obesity Intervention Completed 025, 04/11/2025, 03/13/2025, Additional history exists [facility]-Influenza Vaccine Completed 06/28/2025, 015 HPV Vaccines Aged Out No longer eligi [...] on patient's age to complete this topic Insurance [facility]
--- OUTSIDE RECORDS SUMMARY | 2025-07-11 15:11 | XMS_ITS | Encounter Summary ---
Author Organization [facility] Address [address] [place] [address] Care Team Providers Care Shirt Maker Name Role Phone Unavailable Primary Care Provider Unavailabl e Encounter Details Date Type Department Care Team (Latest Contact Info) Description 07/04/2025 Travel Social History Tobacco Use Types Packs/Day Years Used Date Smoking Tobacco: Never Smokeless Tobacco: Never Sex and Gender Information Value Date Recorded Sex Assigned at Not on file Legal Sex Male 1:21 PM EST Gender Identity Not on file Sexual Orientation Not on file documented as of this encounter Plan of Treatment Not on file documented as of this encounter Visit Diagnoses Not on filedocumented in this encounter Additional Health Concerns Assessment Noted Time A Body Mass Index follow-up plan has been documented for the patient 05/24/2025 9:01 AM EDT documented as of this encounter
--- OUTSIDE RECORDS SUMMARY | 2025-07-11 15:12 | XMS_ITS | Encounter Summary ---
Author Organization [facility] Address [address] [place] [address] Care Team Providers Care Mainspring Torque Tester Name Role Phone Unavailable Primary Care Provider Unavailabl e Encounter Details Date Type Department Care Team (Latest Contact Info) Description 07/03/2025 Travel Social History Tobacco Use Types Packs/Day [...]
--- OUTSIDE RECORDS SUMMARY | 2025-07-11 15:12 | XMS_ITS | Encounter Summary ---
Author Organization [facility] Address [address] [place] [address] Care Team Providers Care Composition Floor Setter Name Role Phone Unavailable Primary Care Provider Unavailabl e Encounter Details Date Type Department Care Team (Latest Contact Info) Description 05/23/2025 Travel Social History Tobacco Use Types Packs/Day [...]
--- OUTSIDE RECORDS SUMMARY | 2025-07-11 15:12 | XMS_ITS | Encounter Summary ---
Author Organization [facility] Address [address] [place] [address] Care Team Providers Care Associate Professor Physician Name Role Phone Unavailable Primary Care Provider Unavailabl e Reason for Referral * Consultation (Routine) - Closed Specialty Diagnoses / Procedures Referred By Marti jarvis Referred To Contact Dentist / Pain Medicine Diagnoses Obstructive sleep apnea (adult) (pediatric) Carolina Abbott MD [address] [place] [address] Phone: tel: fax: Geraldine Joy, DDS [address] [place] [address] Phone: tel: fax: Referral ID Status Reason Start Date Expiration Date Visits Re quested Visits Authorized [id number] Closed 09/28/2024 03/30/2026 1 1 Encounter Details Date Type Department Care Team (Late st Contact Info) Description 09/28/2024 Community [facility] [address] [place] [address] Carolina Abbott MD [address] [place] [address] [phone] Obstructive sleep apnea (adult) (pediatric) (Primary Dx) Social History Tobacco Use Types Packs/Day Years Used Date Smoking Tobacco: Never Assessed Sex and Gender Information Value Date Recorded Sex Assigned at Not on file Legal Sex Male 1:21 PM EST Gender Identity Not on file Sexual Orientation Not on file documented as of this encounter Plan of Treatment Scheduled Referrals Name Type Priority Associated Diagnoses Order Schedule Ambulatory Referral to Orofacial Pain Outpatient Referral Routine Obstructive sleep apnea (adult) (pediatric) Expected: 09/28/2024 (Approximate), Expires: 03/28/2026 documented as of this encounter Visit Diagnoses Diagnosis Obstructive sleep apnea (adult) (pediatric)- Primary documented in this encounter
[2025-07-11] MEDS: ALBUTEROL 0.083% 2.5 MG/3 ML NEB IH (15:55)
== END 2025-07-11 23:59 | disposition home or self-care (01) ==
LOC: RT 14:47
PROVIDERS: PCP Nurse Practitioner Family; Visit Provider Internal Medicine Pulmonary Disease
DX: R94.2 Abnormal results of pulmonary function studies (principal); R06.02 Shortness of breath
CPT/HCPCS: 94070; 95070; J7674

== ENCOUNTER 2025-09-17 15:00 | Outpatient (RCR) | payer OTHER, SELFPAY ==
--- NOTE | 2025-09-09 15:39 | [facility].OTOPEV ---
OT Evaluation Rehab OT Outpatient Eval Start: 09/09/25 15:00 Freq: Status: Active Protocol: Document 09/09/25 15:00 SARA (Rec: 09/09/25 15:39 SARA [id number]) E-signed By Jackelyn Manuel, OT Outpatient Therapy Subjective History Subjective History Pt is a 55 yr old male who presents to initial OT evaluation due to L shoulder pain. Pt reported they had started working out approximately 6 months ago. Pt reported that a couple months ago they were doing a downward dog push-up and since that exercise has been having increased pain and weakness in L shoulder. 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 Pt reported they have not had an MRI and no X-ray. Pt reported they are R hand dominant. Pt presented with limited AROM and reported pain levels during ROM assessment. pt reported it is very tired at the end of the day and they have to position the shoulder to elevate. Pt reported there are times when they do not have pain. Based upon ROM assessment and other measurements and scoring of assessments and observation, pt would benefit from skilled OP OT services and interventions in order to address functional limitations in occupational performance and improve PLOF. New diagnosis of No cancer in past 12 months? Chief Complaint Pain,Weakness,Decreased Coordination Symptom Type Ache Symptoms Relieved By Rest/Positioning,OTC Meds Symptoms Aggravated Physical Activity,Lifting By Prior Functional None Limitations Current Functional Reaching,Lifting,Sleeping,Recreation Activity Limitations Symptom Description Intermittent,Activity Dependent Level of pain today 5 (0-10) Pain scale - at its 0 best (0-10) Pain scale - at its 7 worst (0-10) Shoulder/Elbow Eval Shoulder Objective Measurements Shoulder ROM Left Shoulder ROM Muscle Weakness,Pain Limitations Shoulder Abduction 155 Active Range of Motion (degrees) Shoulder Flexion 165 Active Range of Motion (degrees) Query Text: Shoulder External 60 Rotation Active Range of Motion ( degrees) Shoulder Internal 30 Rotation Active Range of Motion ( degrees) pain with active ROM left shoulder exam standard full ROM shoulder left exam standard Shoulder MMT Shoulder Abduction 3+ Fair+ Strength Grade Shoulder Flexion 3+ Fair+ Strength Grade Shoulder External 3+ Fair+ Rotation Strength Grade Shoulder Internal 3+ Fair+ Rotation Strength Grade Shoulder Strength Sitting Patient Testing Position Elbow Objective Measurements QuickDASH Activities Please rate your ability to do the following activities in the last week by selecting the number below the appropriate response. 1. Open a tight or No difficulty new jar. 2. Do heavy No difficulty motion designer (e. g., wash r[place], floors). 3. Carry a shopping No difficulty bag or briefcase. 4. Wash your back. No difficulty 5. Use a knife to No difficulty cut food. 6. Recreational Moderate difficulty activities in which you take some force or impact through your arm, shoulder, or hand (e.g., golf, hammering, tennis, etc.). 7. During the past Slightly week, to what extent has your arm, shoulder or hand problem interfered with your normal social activities with family, friends , neighbors or groups? 8. During the past Slightly limited week, were you limited in your work or other regular daily activites as a result of your arm, shoulder or hand problem? 9. Arm, shoulder or Moderate hand pain. 10. Tingling (pins None and needles) in your arm, shoulder or hand. 11. During the past Moderate difficulty week, how much difficulty have you had sleeping because of the pain in your arm, shoulder or hand? Quick DASH 19 Work Module (optional) The following questions ask about the impact of your arm, shoulder or hand problem on your ability to work (including homemaking if that is your main work role). 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 Yes 1. Using your usual No difficulty technique for your work? 2. Doing your usual No difficulty work because of arm, shoulder or hand pain? 3. Doing your work No difficulty as well as you would like? 4. Spending your No difficulty usual amount of time doing your work? Quick Dash Work 4 Module Score OT Patient Goals OT Patient Goals OT Short Term 1. Pt will increase L shoulder abduction to 165 degrees Patient Goals to complete upper body dressing independently ~50% of the time. 2. Pt will increase L shoulder ER/IR to 65 degrees (ER) and 45 degrees (IR) in order to complete lower body dressing (putting on and taking off belt) independently ~50% of the time. 3. Pt will increase strength to 4/5 throughout left shoulder in order to complete heavier household tasks ( laundry, mopping, vacuuming) independently ~50% of the time. 4. Pt will verbalize decreased pain levels at worst in L shoulder to a 5/10 in order to complete daily ADLs independently ~50% of the time. 5. Pt will demonstrate improved endurance by completing left shoulder exercises for ~20 minutes prior to rest break in order to increase his tolerance for daily work activities. 6. Pt will demonstrate independence with HEP of AAROM exercises to increase overall functional use of left shoulder in daily activities ~75% of the time. OT Assisted Patient 1. Pt will increase L shoulder abduction to 165 degrees Goals to complete upper body dressing independently ~50% of the time. 2. Pt will increase L shoulder ER/IR to 65 degrees (ER) and 55 degrees (IR) in order to complete lower body dressing (putting on and taking off belt) independently ~50% of the time. 3. Pt will increase strength to 4+/5 throughout left shoulder in order to complete heavier household tasks ( laundry, mopping, vacuuming) independently ~50% of the time. 4. Pt will verbalize decreased pain levels at worst in L shoulder to a 3/10 in order to complete daily ADLs independently ~50% of the time. 5. Pt will demonstrate improved endurance by completing left shoulder exercises for ~25 minutes prior to rest break in order to increase his tolerance for daily work activities. 6. Pt will demonstrate independence with advanced strengthening exercises to increase overall functional use of left shoulder in daily activities ~75% of the time. OT Outpatient Assessment Impairments Problems/Impairments Impaired Range of Motion,Impaired Strength,Impaired Endurance,Impaired Lifting,Impaired Recreational Activities,Subjective C/O Pain,Impaired Self Care/Self Management Prognosis Rehab Potential Good Clinical Impression Consistent with Yes Diagnosis Outpatient Therapy Plan of Care Treatment Plan May Include Therapeutic Exercise Yes Including Home Exercise Program Manual Therapy Yes Techniques Neuromuscular Re- Yes education Therapeutic Yes Activities to Return to Previous Functional/Work Level ADL/Self Care Yes Education Thermal Modalities Yes Electrical Yes Stimulation Ultrasound/ Yes Phonophoresis Iontophoresis Yes Parrafin Yes Orthotics/Bracing/ Yes Splinting Group Therapy for Yes Medicare Eval/Re-Eval Yes Frequency Times per week 2 Duration Number of Weeks 6 Addendums This patient is a No candidate for social or vocational rehab ? Patient/Guardian Yes verbally acknowledges understanding of treatment program and consents to further treatment? Patient/Guardian Yes verbally acknowledges understanding of diagnosis, prognosis and goals for treatment? Eval Complexity OT Charge [id number] - Moderate Complexity PHYSICIAN CERTIFICATION: I certify the specified therapy services for Randell Hill are required, authorized, and reviewed every 30 days.
== END 2025-09-17 23:59 | disposition home or self-care (01) ==
LOC: OT 15:00
PROVIDERS: PCP Nurse Practitioner Family; Visit Provider Nurse Practitioner Family
DX: M25.512 Pain in left shoulder (principal)
CPT/HCPCS: 97014; 97110; 97140; 97166; G0283